=== PATIENT | female | born 1945 | race Caucasian/White ===

== ENCOUNTER → 2021-06-28 13:07 | Outpatient (BNVA) | payer MEDICARE, SELFPAY | PROVIDERS: Visit Provider Psychiatry & Neurology Neurology | DX: R25.1 Tremor, unspecified (principal); M54.9 Dorsalgia, unspecified; R25.2 Cramp and spasm | CPT/HCPCS: 99212 ==

== ENCOUNTER → 2021-12-24 14:02 | Outpatient (BNVA) | payer MEDICARE, SELFPAY | PROVIDERS: PCP Internal Medicine; Visit Provider Psychiatry & Neurology Neurology | DX: R25.1 Tremor, unspecified (principal); M54.9 Dorsalgia, unspecified; R25.2 Cramp and spasm | CPT/HCPCS: 99212 ==

== ENCOUNTER 2025-04-18 15:08 | Outpatient (AMB) | payer MEDICARE, MEDICAID, SELFPAY ==
--- OUTSIDE RECORDS SUMMARY | 2006-11-18 11:42 | XMS_ITS | Encounter Summary ---
Author Organization [facility] Address [address] [place] [address] Care Team Providers Care Hospital Education Coordinator Name Role Phone Unavailable Primary Care Provider Unavailabl e Encounter Details Date Type Department Care Team (Late st Contact Info) Description 11/18/2006 12:42 PM EDT Hospital Encounter TH HISTORIC ENCOUNTERS EASTERN CONVERSION ONLY Anne Newman MD [address] [phone] Social History Tobacco Use Types Packs/Day Years Used Date Smoking Tobacco: Former Cigarettes 0.5 Q uit: 11/17/2022 Smokeless Tobacco: Never Alcohol Use Standard Drinks/Week Comments Not Currently 0 (1 standard drink = 0.6 oz pur e alcohol) Housing Instability Answer Date Recorde d Are you worried that in the next 2 months you may not have stable housing? No 03/23/2025 Food Access & Nutrition Answer Date Rec orded Do you have access to a vari ety of food including fruits and vegetables? No 03/23/2025 Health Literacy Answer Date Recorded How often do you need to hav e someone help you when you read instructions, pamphlets, or other written material from your doctor or pharmacy? Never 03/23/2025 Caregiver: How often do you need to have someone help you when you read instructions, pamphlets, or other written material from your doctor or pharmacy? Not on file 03/23/2025 Financial Risk Answer Date Recorded How hard is it for you to pa y for the very basics like food, housing, medical care, and air conditioning / heating? Not very hard 03/23/2025 Transportation Answer Date Recorded Has the lack of transportati on kept you from meetings, work, or from getting things needed for daily living? No Has the lack of transportati on kept you from medical appointments or from getting medications? No 03/23/2025 Social Isolation Answer Date Recorded How often do you feel lonely or isolated from th ose around you? Never 03/23/2025 Food Risk Answer Date Recorded Within the past 12 months we worried whether our food would run out before we got money to buy more. Never true 03/23/2025 Within the past 12 months th e food we bought just didn't last and we didn't have money to get more. Never true 03/23/2025 Dependent Care Answer Date Recorded Do you need help finding or paying for care for your loved ones. For example, director child development center or elderly care for an older adult? No 03/23/2025 Education Answer Date Recorded Do you think completing more education or training, like finishing a GED, going to college, or learning a trade, would be helpful for you? Patient declined 05/10/2024 Employment and Income Answer Date Recor ded During the last four weeks, have you been actively looking for work? No 03/23/2025 Living Situation Answer Date Recorded What is your living situation? Unrecognized valu e 03/23/2025 Interpersonal Safety Answer Date Record ed Physical Abuse Unrecognized value 04/09/2025 Verbal Abuse Unrecognized value 04/09/2025 Comments No Sex and Gender Information Value Date Recorded Sex Assigned at Female 08/24/2024 11:07 AM EDT Legal Sex Female 10:56 AM EST Gender Identity Female 08/24/2024 11:07 AM EDT Sexual Orientation Straight 08/24/2024 11 :07 AM EDT documented as of this encounter Functional Status * Calculated C-SSRS Risk Score (Lifetime/Recent) Answer Date of Assessment Author No Risk Indicated 04/09/2025 2:40 PM Irasema Rey RN * [place] Suicide Severity Rating Scale (Screener/Recent Self-Report) Question Answer Date of Assessment Author 1. Wish to be (Past 1 Month) No 025 2:40 PM Irasema Rey RN 2. Non-Specific Active Suici rosa maria Thoughts (Past 1 Month) No 04/09/2025 2:40 PM Ashleigh Rey RN 6. Suicidal Behavior (Lifetime) No 2:40 PM Irasema Rey RN documented as of this encounter Plan of Treatment Upcoming Encounters Date Type Department Care Team (Late st Contact Info) Description 04/19/2025 1:45 PM EST Office Visit Internal Medicine - [address] [phone] Spring Oconnell MD [address] [place] [phone] 05/02/2025 1:30 PM EST Office Visit Orthopedic Surgery [place] [id number] [phone] Niraj Palacios DPM [address] [phone] 09/21/2025 10:15 AM EDT Office Visit Pulmonology [address] [phone] Shelia Mandujano MD [address] [place] [phone] 09/23/2025 11:15 AM EDT Office Visit Internal Medicine [address] [phone] Spring Oconnell MD [address] [place] [phone] documented as of this encounter Visit Diagnoses Not on filedocumented in this encounter Additional Health Concerns Infection Onset Date Last Indicated Resolved Time Respiratory Rule-Out 05/10/2024 05/10/202406/2 025 3:13 AM EST COVID-19 Rule-Out 05/10/2024 05/10/2024 05/10/2024 3:13 AM EST Respiratory Rule-Out 04/09/2025 04/09/2025 025 5:03 PM EST COVID-19 Rule-Out 04/09/2025 04/09/2025 04/09/2025 5:03 PM EST Enterovirus 04/09/2025 04/09/2025 Rhinovirus 04/09/2025 04/09/2025 documented as of this encounter
--- OUTSIDE RECORDS SUMMARY | 2013-03-18 09:16 | XMS_ITS | Encounter Summary ---
Author Organization [facility] Address [address] [place] [address] Care Team Providers Care Curing Press Maintainer Name Role Phone Unavailable Primary Care Provider Unavailabl e Encounter Details Date Type Department Care Team (Late st Contact Info) Description 03/18/2013 9:16 AM EST Hospital Encounter [facility] Pre-Admission Testing [address] [place] [phone] Zander Moreno MD [address] [place] [address] [place] [phone] Social History Tobacco Use Types Packs/Day Years [...] care for your loved ones. For example, child and family counselor or elderly care for an older adult? [...] 04/09/2025 2:40 PM Irasema Rey RN * [place] Suicide Severity Rating Scale (Screener/Recent Self-Report) Question [...] PM EST Office Visit Internal Medicine - [place] [address] [phone] Spring Oconnell MD [address] [place] [phone] 05/02/2025 1:30 PM EST Office Visit Orthopedic Surgery - [place] [address] [phone] Niraj Palacios DPDago [address] [phone] 09/21/2025 10:15 AM EDT Office Visit Pulmonology - [address] [phone] Shelia Mandujano MD [address] [place] [phone] 09/23/2025 11:15 AM EDT Office Visit Internal Medicine [facility] [address] [phone] Spring Oconnell MD [address] [place] [phone] documented as of this encounter Visit Diagnoses Not on filedocumented in this encounter Additional Health Concerns Infection Onset Date Last Indicated Resolved Time Respiratory Rule-Out 05/10/2024 05/10/2024 025 3:13 AM EST COVID-19 Rule-Out 05/10/2024 05/10/2024 05/10/2024 3:13 AM EST Respiratory Rule-Out 04/09/2025 04/09/2025 025 5:03 PM EST COVID-19 Rule-Out 04/09/2025 04/09/2025 04/09/2025 5:03 PM EST Enterovirus 04/09/2025 04/09/2025 Rhinovirus 04/09/2025 04/09/2025 documented as of this encounter
--- NOTE | 2025-04-18 15:11 | A.PHYSOV ---
Vital Signs 04/18/25 15:12 Height 4 ft 11 in Weight 125 lb BMI 25.2 Intake Visit Reasons: Follow up after injection 02/11/25 Intake Note: Patient is a 79 year old female in office today for a follow up after Left Sacroiliac Joint Injection 02/11/25. 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 She has a history of severe lower back pain and uses gabapentin at nighttime. A lumbar sacral spine MRI from September 2019 revealed moderate to severe spinal stenosis and neuroforaminal stenosis at the L3-L4 level. Her pain history includes discomfort in the left buttock and left anterolateral thigh, for which she previously had good results with L4-L5 interlaminar and right L4 transforaminal injections. A left L3 transforaminal injection on November 24, 2024, did not provide relief. A repeat MRI on December 25, 2024, showed only mild stenosis at the L3-L4 level. Subsequently, a left sacroiliac joint injection was performed on February 11, 2025. Following the most recent injection, the patient reports she can walk erect and is comfortable while standing. However, approximately three weeks after the procedure, she experienced a single day of severe, continuous, and debilitating muscle cramping in her arms and legs. She continues to experience muscle cramps, though they are not as severe. For the past few weeks, she has also been dragging her left leg, which concerns her. In her recent medical history, the patient was hospitalized for rhinovirus after experiencing symptoms for four days, including chest pressure and difficulty breathing. She has no history of heart issues and was treated with steroids during her hospitalization. Pain Description - Location: The patient reports severe lower back pain, very painful discomfort in the groin area, and left hip pain. - Quality: She describes the pain as a discomfort and also experiences muscle cramps. - Exacerbating Factors: The groin and left hip pain are worse when lying in bed, particularly on her left side. - Relieving Factors: A recent left sacroiliac joint injection has provided significant relief, allowing her to stand and walk upright comfortably. - Associated Symptoms: She reports dragging her left leg for several weeks. Results - Lumbar sacral spine MRI (September 23, 2019): Moderate to severe spinal stenosis at L3-L4 and neuroforaminal stenosis at the same level. - Lumbar sacral spine MRI (December 25, 2024): Mild stenosis at the L3-L4 level. - Recent hospitalization workup: Positive for Rhinovirus. [facility] Medical History (Updated 04/18/25 @ 16:44 by Ashok Christensen DO) Footdrop Sacroiliac inflammation Sacroiliac dysfunction Spinal stenosis, lumbar region with neurogenic claudication Lumbar radiculitis Cramps, extremity Foot cramps Back pain Neck pain HTN (hypertension) SVT (supraventricular tachycardia) Spinal stenosis Arthritis Tremors of nervous system Surgical History History of suburethral sling procedure History of partial colectomy Hx of breast surgery Hx of eye surgery Hx of pneumonectomy Hx of heart surgery Hx of appendectomy Family History Paternal Grandmother Tremors of nervous system Social History Alcohol intake: current Alcohol intake frequency: holidays/special occasions only Patient Tobacco Use Status: Current someday Tobacco user Substance Use Type: Marijuana Current occupational status: retired Review of Systems Narrative Review of Systems - General: Denies falls. - Cardiovascular: Denies heart issues; reports recent history of chest pressure. - Respiratory: Reports recent history of dyspnea. - Musculoskeletal: Reports severe low back pain, groin pain, and left hip pain, particularly when lying down. - Musculoskeletal: Reports ongoing muscle cramps, with one severe episode in the past. - Neurological: Reports dragging her left leg and weakness in the foot. - Neurological: Reports feeling off kilter sometimes but is very cautious about her balance. Physical Exam Exam Exam: Physical Exam - General: Patient is observed walking erect. - Neurological: Gait is notable for left foot dragging. Neurological examination reveals left footdrop 3/5. Patellar and Achilles reflexes were symmetric. Patient demonstrated no upper motor neuron signs. - Musculoskeletal: Left foot is noted to be weaker than the right, consistent with foot drop. - Musculoskeletal: Patient is able to perform ankle dorsiflexion and plantarflexion actively without resistance. Vital Signs: BMI result Body Mass Index 25.2 Assessment & Plan Assessment & Plan (1) Lumbar radiculitis: Code(s): M54.16 - Radiculopathy, lumbar region Category: Medical (2) Spinal stenosis, lumbar region with neurogenic claudication: Code(s): M48.062 - Spinal stenosis, lumbar region with neurogenic claudication Category: Medical (3) Sacroiliac dysfunction: Code(s): M53.3 - Sacrococcygeal disorders, not elsewhere classified Category: Medical (4) Sacroiliac inflammation: Code(s): M46.1 - Sacroiliitis, not elsewhere classified Category: Medical (5) Footdrop: Code(s): M21.379 - Foot drop, unspecified foot Category: Medical Qualifiers: Laterality: left Qualified Code(s): M21.372 - Foot drop, left foot Plan Pain Management - Analgesia: The patient uses gabapentin at nighttime. - Analgesia: A left sacroiliac joint injection performed on February 11, 2025, has provided significant pain relief, allowing her to stand and walk upright. - Activities of Daily Living: She can now walk erect. - Activities of Daily Living: She continues to experience discomfort when lying in bed and is dragging her left leg. - Activities of Daily Living: She is very cautious regarding her balance to prevent falls and uses grab bars in the shower. - Adverse Effects: The patient experienced a single day of severe, debilitating, continuous muscle cramps in her arms and legs three weeks after her last injection, which may have been a reaction to the steroid. - Adverse Effects: She continues to experience muscle cramps, although they are less severe. Plan Patient was informed and verbally consented to the use of an ambient scribe for clinic note documentation during this visit. 1. Lumbar Spinal Stenosis And Chronic Low Back Pain The patient's current improvement in ambulation, allowing her to stand upright, is attributed to the recent left sacroiliac joint injection. Her new-onset left foot drop is likely related to a pinched nerve in her low back due to spinal stenosis. The severe muscle cramping episode about three weeks after the injection may have been a reaction to the steroid. Given the current good pain control and the previous adverse reaction, no immediate repeat injection is planned. She was advised to continue monitoring her symptoms and to call if the pain returns to a level where she cannot stand upright. A repeat injection can be considered after May 14, 2025. 2. Left Foot Drop The patient's left foot drop, characterized by foot dragging, is believed to be a consequence of lumbar spinal stenosis causing nerve impingement. While she is at risk for falls, she is actively mitigating this by being very cautious. She has a scheduled consultation with a neurologist, Dr. Cortes, in August for further evaluation. A referral for an ankle-foot orthosis (brace) is a potential future intervention if her condition does not improve or her fall risk increases. 3. Left Sacroiliac Joint Pain The patient has shown a significant positive response to the left sacroiliac joint injection from February 11, 2025, which has resolved her pain with ambulation and allows her to stand upright. The plan is to monitor the duration of relief from this injection. A repeat injection can be performed after May 14 if symptoms recur. Discussion Notes I discussed with the patient that her ability to walk upright without significant pain is likely due to the left sacroiliac joint injection she received over two months ago. We talked about her new symptom of left foot dragging, and I explained that this is likely related to a pinched nerve from her known spinal stenosis, not the sacroiliac joint. I acknowledged her report of a severe episode of muscle cramping that occurred about three weeks after the injection and explained it might have been a reaction to the steroid. Due to this potential side effect, I expressed hesitation about repeating the injection too soon. We agreed to a plan of monitoring her symptoms. I noted that her upcoming neurology appointment with Dr. Cortes in August is appropriate for her foot drop symptoms. I mentioned that if neurologic evaluation does not provide a solution, we could consider a referral for an ankle-foot orthosis (brace) to improve safety. I informed her she could call to schedule another injection after May 14 if her pain returns to the point where she can no longer stand upright. Patient Instructions - Continue to be very careful with your balance to avoid falling, especially since you are dragging your left foot. - Keep your neurology appointment with Dr. Bliss in August to have your foot weakness evaluated. - If your pain returns and you can no longer stand up straight, call our office to discuss another injection. - You are able to get another injection after May 14, if it becomes necessary. - If you and your neurologist decide a brace for your ankle and foot would be helpful, we can provide a referral for orthotics. Coding Level of Care Code Est Pt Level 4 (72944) Add On Problem Visit Only Diagnoses Lumbar radiculitis M54.16 Spinal stenosis, lumbar region with neurogenic claudication M48.062 Sacroiliac dysfunction M53.3 Sacroiliac inflammation M46.1 Left foot drop M21.372 Laterality: left
[2025-04-18 15:12] VITALS: BMI 25.2
--- OUTSIDE RECORDS SUMMARY | 2025-04-18 21:41 | XMS_ITS | Patient Health Record ---
[facility] Address [address] [place] [address] Care Team Providers Care Management Developer Name Role Phone Cullen Kingsley MD Primary Care Provider Carolinastephanie Tang [place] Unavailable [phone] Allergies Allergen (clinical drug ingredient) Drug/Non Drug Allergy documented on EMR Reaction Allergy Type Onset Date Status sulfamethoxazole / trimethoprim Bactrim Unknown Drug Allergy Active Sulfamethoxazole Unknown Drug Allergy Active sulfa Unknown Drug Allergy Active Reason For Referral No Information Medications Medication SIG (Take, Route, Frequency, Duration) Notes Start Date End Date Status Meclizine HCl 12.5 MG 2 tablets as neede d Orally Once a day 05/06/2017 Not-Taking dilTIAZem HCl ER Not -Taking oxyBUTYnin Active Curcumin 95 Active Vitamin D3 Active Cartia XT 180 MG 1 capsule Orally Onc e a day 05/06/2017 Active Atorvastatin Calcium 40 MG 1 tablet Orally Once a day Active B-12 100-5000 MCG Sublingual A ctive Multi Vitamin Daily - 1 tablet Orally On ce a day Active Anti-Diarrheal 2 MG 1 tablet as needed Orally Four times a day 05/06/2017 Unknown Celecoxib 100 MG 1 capsule with food Orally Unknown CeleBREX 100 MG 1 capsule with food Orally Once a day 05/06/2017 Not-Taking Social History Tobacco Use: Social History Observation Description Date Details (start date - stop date) Current Smoker NA - NA Tobacco Use/Smoking Question Answer Notes Are you a: current smoker When did you start smoking? 1959 How often do you smoke cigarettes? every day How many cigarettes a day do you smoke? -20 How soon after you wake up d o you smoke your first cigarette? 6-30 minutes Are you interested in quitting? Ready to quit Additional Findings: Tobacco User Heavy cigarett e smoker (20-39 cigs/day) Alcohol Screen Question Answer Notes Did you have a drink containing alcohol in the p ast year? Yes Points 0 Interpretation Negative Tobacco use other than smoking: Question Answer Notes Are you an other tobacco user? No Problems Problem Type SNOMED Code ICD Code Onset Dates Problem Status W/U Status Risk Notes Problem Smoker (41969279) Smoker (F17.200) Active confirmed Plan Of Treatment Pending Test Test Name Order Date 32111-HRSLYSE NAIL, 6 OR MORE 05/13/2017 Nail Panel 05/13/2017 Insurance Providers Payer Name Payer Address Payer Phone Subscriber Number Group Number Insured Name Patient Relationship to Insured Coverage Start Date Coverage End Date [employer] Preferred [address] [place] [address] [phone] [id number] Krystyna Hightower Self - patient is the insured Medical (General) History Medical History History ICD Code Arthritis Back,Hip,and Knee pain CAD (Cholesterol) High blood pressure Macular degeneration Osteoporosis Measles Mumps Chicken pox Surgical History Surgery Date(Month/Year) lung surgery 03/27/2013 colon 06/07/2011 sling, at bladder neck 11/20/2006 appendectomy 1966 Appendix 1959 3 eye surgeries 1950 Breast Surgery 2002 Hospitalization History Reason Date(Month/Year) MM observation 12/22/18
--- OUTSIDE RECORDS SUMMARY | 2025-04-18 21:42 | XMS_ITS | Clinical Summary ---
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 Active Oyster Shell Calcium + D3 500-10 MG-MCG tablet Take 2 tablets by mouth Once per day. Active dilTIAZem CD (Cardizem CD) 180 MG 24 hr capsule Take 180 mg by mouth Once per day. 2 Active gabapentin (Neurontin) 300 MG capsule 300 mg 2 times daily. 3 Active spironolactone (Aldactone) 50 MG tablet Take 50 mg by mouth Once per day. 4 Active Gemtesa 75 MG tablet Take 1 tablet by mouth Once per day. Active Anoro Ellipta 62.5-25 MCG/ACT aerosol powder INHALE 1 PUFF ONCE DAILY 3 Active acetaminophen (Tylenol 8 Hour) 650 MG ER tablet Take 650 mg by mouth 2 times daily. 4 Active ProAir RespiClick 108 (90 Base) MCG/ACT aerosol powder INHALE TWO puffs BY MOUTH EVERY FOUR HOURS NEEDED FOR WHEEZING OR SHORTNESS OF BREATH 4 Active Social History Tobacco Use Types Packs/Day Years Used Date Smoking Tobacco: Every Day Cigarettes Passive Smoke Exposure: Never Smokeless Tobacco: Never Tobacco Cessation:Ready to Q uit: Not Asked; Counseling Given: Not Answered Comments Unknown Sex and Gender Information Value Date Recorded Sex Assigned at Female 03/04/2022 10:35 AM EDT Legal Sex Female 10:35 AM EDT Gender Identity Female 03/04/2022 10:35 AM EDT Sexual Orientation Straight 03/04/2022 10 :35 AM EDT Last Filed Vital Signs Vital Sign Reading Time Taken Comments Blood Pressure 106/60 09/11/2023 11:08 AM EDT Pulse 65 09/11/2023 11:08 AM EDT Temperature - - Respiratory Rate - - Oxygen Saturation - - Inhaled Oxygen Concentration - - Weight - - Height - - Body Mass Index - - Plan of Treatment Health Maintenance Due Date Last Done Comments Depression Screening 1944 Lipid Panel 1944 SDOH Screening 1944 Alcohol/Substance Use Screening 1956 Dental Oral Exam 03/14/2024 09/11/2023, 09/15/2018 Dental Prophylaxis 03/14/2024 09/11/2023, 09/22/2018 Dental X-Ray: Bitewings 09/11/2024 09/11/2023, 09/11 Tobacco Screening 10/15/2024 10/16/2023 COVID-19 Vaccine ( season) 2025 01/20/2023, 02/12/2022, 09/16/2021, Additional history exists Influenza Vaccine (#1) 2025 , 01/31/2022, 02/07/2021, Additional history exists Dental X-Ray: Full Mouth 09/11/2026 09/11/2023, 09/02 DTaP/Tdap/Td Vaccines (3 - Td or Tdap) 01/21/2029 01/21/2019, 01/06/2019 Zoster Vaccines Completed 07/20/2019, 05/22/2019 Pneumococcal Vaccine: 50+ Years Completed 06/22/2021, 08/22/2017 RSV Patients and Patients Aged 60 years or older Completed 01/15/2023 HIB Vaccines Aged Out No longer eligi ble based on patient's age to complete this topic HPV Vaccines Aged Out No longer eligi ble based on patient's age to complete this topic Hepatitis A Vaccines Aged Out No long er eligible based on patient's age to complete this topic Hepatitis B Vaccines Aged Out No long er eligible based on patient's age to complete this topic IPV Vaccines Aged Out No longer eligi ble based on patient's age to complete this topic Meningococcal B Vaccine Aged Out No l onger eligible based on patient's age to complete this topic Meningococcal Vaccine Aged Out No janes christina eligible based on patient's age to complete this topic RSV under 20 months Aged Out No longe r eligible based on patient's age to complete this topic Rotavirus Vaccines Aged Out No longer eligible based on patient's age to complete this topic Procedures Procedure Name Priority Date/Time Associated Diagnosis Comments PROPHYLAXIS - ADULT Routine 09/11/2023 1 1:00 AM EDT INTRAORAL - COMPLETE SERIES OF RADIOGRAPHIC IMAGES Routine 09/11/2023 11:00 AM EDT PERIODIC ORAL EVALUATION - ESTABLISHED PATIENT Routine 09/11/2023 11:00 AM EDT from Last 3 Months or Most Recently Relevant to Health Maintenance Insurance DENTAL - HSN FULL (MEDICAID)
--- OUTSIDE RECORDS SUMMARY | 2025-04-18 21:42 | XMS_ITS | Encounter Summary ---
Author Organization [facility] Address [address] [place] [address] Care Team Providers Care Organic Chemistry Teacher Name Role Phone Spring Oconnell MD Primary Care Provider [phone] Reason for Visit * Reason Onset Date Comments Medication Problem 03/15/2025 Encounter Details Date Type Department Care Team ([facility] st Contact Info) Description 03/15/2025 Telephone Internal Medicine - [address] [place] [address] Spring Oconnell MD [address] [place] [phone] Social History Tobacco Use Types Packs/Day Years [...] do you feel lonely or isolated from ose around you? Never 03/23/2025 Food Risk [...] care for your loved ones. For example, childcare center administrator or elderly care for an older adult? [...] as of this encounter Functional Status * Are you deaf or do you have serious difficulty hearing? Answer Date of Assessment Author No 05/10/2024 7:51 AM EST Doles, As dawna Enrique RN * Are you blind or do you have serious difficulty seeing, even when wearing glasses? Answer Date of Assessment Author No 05/10/2024 7:51 AM EST Doles, As dawna Enrique RN * Do you have serious difficulty walking or climbing stairs? Answer Date of Assessment Author No 05/10/2024 7:51 AM EST Doles, As dawna Enrique RN * Do you have serious difficulty dressing or bathing? Answer Date of Assessment Author No 05/10/2024 7:51 AM EST Doles, As dawna Enrique RN * Because of a physical, mental, or emotional condition, do you have serious difficulty doing errandsalone such as visiting the doctor? Answer Date of Assessment Author No 05/10/2024 7:51 AM EST Dolmaddison, As dawna Enrique RN * Calculated C-SSRS Risk Score (Lifetime/Recent) Answer Date of Assessment Author No Risk Indicated 04/09/2025 2:40 PM Irasema Rey RN * [place] Suicide Severity Rating Scale (Screener/Recent Self-Report) Question Answer Date of Assessment Author 1. Wish to be (Past 1 Month) No 025 2:40 PM Irasema Rey RN 2. Non-Specific Active Suici rosa maria Thoughts (Past 1 Month) No 04/09/2025 2:40 PM Ashleigh Rey RN 6. Suicidal Behavior (Lifetime) No 2:40 PM Irasema Rey RN documented as of this encounter Mental Status * Because of a physical, mental, or emotional condition, do you have serious difficulty concentrating, remembering, or making decisions? (5 years old or older) Answer Entry Date Author No 05/10/2024 7:51 AM SHAR Cantu, Krissy Enrique RN documented in this encounter Ordered Prescriptions Prescription Sig Dispense Quantity Refills Last Filled Start Date End Date amoxicillin-clavul anate (AUGMENTIN) 875-125 mg per tablet Take 1 tablet by mouth 2 (two) times a day for 7 days. 14 tablet 03/29/2025 04/12/2025 documented in this encounter Progress Notes * Alice Kyle MD - 03/29/2025 6:28 AM EST sent * Esme Anne MA - 03/28/2025 11:37 AM EST Patient called and stated she was seen with Dr Oconnell and she stated antibiotic was suppose to be send to her local pharmacy is this something you could send. * Carmina Back - 03/25/2025 9:03 AM EST Patient was just in office - UTI No med was sent to pharmacy - did discuss this at [facility] and amoxicillin was to be sent to pharmacy. Call patient when sent to pharmacy documented in this encounter Plan of Treatment Upcoming Encounters Date Type Department Care Team (Late st Contact Info) Description 04/19/2025 1:45 PM EST Office Visit Internal Medicine - [facility] [address] [phone] Spring Oconnell MD [address] [place] [address] 05/02/2025 1:30 PM EST Office Visit Orthopedic Surgery - [facility] [address] [phone] Niraj Palacios DPM [address] [phone] 09/21/2025 10:15 AM EDT Office Visit Pulmonology - [facility] [address] [place] [phone] Shelia Mandujano MD [address] [place] [address] 09/23/2025 11:15 AM EDT Office Visit Internal Medicine - [facility] [address] [place] [phone] Spring Oconnell MD [address] [place] [phone] documented as of this encounter Visit Diagnoses Not on filedocumented in this encounter Additional Health Concerns Infection Onset Date Last Indicated Resolved Time Respiratory Rule-Out 04/09/2025 04/09/2025 025 5:03 PM EST COVID-19 Rule-Out 04/09/2025 04/09/2025 04/09/2025 5:03 PM EST Enterovirus 04/09/2025 04/09/2025 Rhinovirus 04/09/2025 04/09/2025 Assessment Noted Time PHQ-9 Depression Total Score: 12 025 1:13 PM EDT documented as of this encounter Care Teams Organic Chemistry Teacher Relationship Specialty Start Date End Date Spring Oconnell MD [address] [facility] [address] [place] [phone] PCP - General Internal Medicine 03/11/25 documented as of this encounter
--- OUTSIDE RECORDS SUMMARY | 2025-04-18 21:42 | XMS_ITS | Clinical Summary ---
Author Organization [facility] Address [address] [place] [address] Phone Care Team Providers Care Special Investigation Unit Investigator Name Role Phone Spring Oconnell MD Primary Care Provider [phone] Allergies Active Allergy Reactions Criticality Noted Date Comments Codeine 09/11/2005 Prednisone 05/10/2024 Pt states on last admission she got herpes from steroids Sulfamethoxazole 03/28/2020 Sulfamethoxazole-Trimethop rim Diarrhea,Nausea And Vomiting 04/03/2021 Medications acetaminophen (TYLENOL 8 HOUR) 650 mg 8 hr tablet Take 1 tablet (650 mg total) by mouth if needed. 06/13/19 24 Active ipratropium-albu teroL (Combivent Respimat) 20-100 mcg/actuation inhaler Inhale 1 puff by mouth 4 (four) times a day. 12/12/19 23 Active multivitamin tablet Take 1 tablet by mouth 1 (one) time each day. Active fluticasone propionate (FLONASE) 50 mcg/actuation nasal spray Administer 2 sprays into each nostril 1 (one) time each day. Shake gently. Before first use, prime pump. After use, clean tip and replace cap. 16 g 5 05/03/20 24 025 Active calcium carbonate-cholec alciferol 500 mg-10 mcg (400 unit) per tabletIndication s:Age-related osteoporosis without current pathological fracture Take 1 tablet by mouth 2 (two) times a day. 180 tablet 3 08/24/19 25 Active atorvastatin (LIPITOR) 40 mg tablet Take 1 tablet (40 mg total) by mouth 1 (one) time each day. 90 each 2 09/15/19 25 Active umeclidinium-adwoa anteroL (Anoro Ellipta) 62.5-25 mcg/actuation inhalerIndicatio ns:Chronic obstructive pulmonary disease, unspecified COPD type (CMS/HCC V24, CMS/HCC V28) Inhale 1 puff by mouth 1 (one) time each day. 3 each 3 11/04/19 25 026 Active vibegron (Gemtesa) 75 mg tablet tabletIndication s:OAB (overactive bladder) Take 1 tablet (75 mg total) by mouth 1 (one) time each day. 90 tablet 3 11/26/19 25 Active colestipoL (COLESTID) 1 gram tabletIndication s:Functional diarrhea Take 4 tablets (4 g total) by mouth 2 (two) times a day. 720 each 3 02/05/20 25 026 Active albuterol HFA (PROAIR HFA ; PROVENTIL HFA ; VENTOLIN HFA) 90 mcg/actuation inhaler Inhale 2 puffs by mouth every 6 (six) hours if needed for wheezing or shortness of breath. 1 each 11 03/22/20 25 026 Active gabapentin (NEURONTIN) 300 mg capsule Take 1 capsule (300 mg total) by mouth 3 (three) times a day. 90 each 5 03/23/20 25 026 Active cholecalciferol (Vitamin D3) 50 mcg (2,000 unit) tablet Take 1 tablet (2,000 Units total) by mouth 1 (one) time each day. 90 tablet 1 03/23/20 25 026 Active dilTIAZem CD (CARDIZEM CD) 120 mg 24 hr capsule Take 1 capsule (120 mg total) by mouth 1 (one) time each day. 30 each 04/12/20 25 026 Active spironolactone (ALDACTONE) 25 mg tablet Take 1 tablet (25 mg total) by mouth 1 (one) time each day. 30 each 04/12/20 25 026 Active apixaban (ELIQUIS) 5 mg tablet Take 2 tablets (10 mg total) by mouth 2 (two) times a day for 6 days, THEN 1 tablet (5 mg total) 2 (two) times a day. 84 each 04/12/20 25 026 Active dexAMETHasone (DECADRON) 1 mg tablet Take 1 tablet (1 mg total) by mouth 2 (two) times a day. 4 each 04/12/20 25 Active albuterol sulfate (ProAir RespiClick) 90 mcg/actuation aerosol powdr breath activated 05/20/19 24 Discontinu ed(Duplica te order) cyanocobalamin (VITAMIN B-12) 2,000 mcg tablet Take 1 tablet (2,000 mcg total) by mouth 1 (one) time each day. Discontinu ed(Prescri malachi Discontinu ed) diclofenac (VOLTAREN) 1 % topical gel Apply 2 g topically if needed. 03/15/20 22 Discontinu ed(Stop Taking at Discharge) gabapentin (NEURONTIN) 300 mg capsule Take 1 capsule (300 mg total) by mouth 2 (two) times a day. 01/22/20 23 Discontinu ed(Reorder ) spironolactone (ALDACTONE) 50 mg tablet Take 1 tablet (50 mg total) by mouth 1 (one) time each day. 90 each 08/17/19 25 Discontinu ed(Stop Taking at Discharge) albuterol HFA (PROAIR HFA ; PROVENTIL HFA ; VENTOLIN HFA) 90 mcg/actuation inhalerIndicatio ns:Chronic obstructive pulmonary disease, unspecified COPD type (CMS/HCC V24, CMS/HCC V28) Inhale 2 puffs by mouth every 6 (six) hours if needed for wheezing or shortness of breath. 1 each 11 11/04/19 25 Discontinu ed(Duplica te order) acyclovir (ZOVIRAX) 400 mg tablet 11/03/19 25 Discontinu ed(Prescri malachi Discontinu ed) fluocinonide (LIDEX) 0.05 % topical solution 11/03/19 25 Discontinu ed(Entered in Error) apixaban (Eliquis) 5 mg tablet Take 1 tablet (5 mg total) by mouth 2 (two) times a day. 180 tablet 1 12/09/19 25 025 Discontinu ed(Prescri malachi Discontinu ed) dilTIAZem CD (CARDIZEM CD) 180 mg 24 hr capsule Take 1 capsule (180 mg total) by mouth 1 (one) time each day. 90 capsule 1 12/15/19 25 Discontinu ed(Stop Taking at Discharge) cholecalciferol (VITAMIN D-3) 50 mcg (2,000 unit) capsuleIndicatio ns:Age-related osteoporosis without current pathological fracture Take 1 capsule (2,000 Units total) by mouth 1 (one) time each day. 90 each 3 03/01/20 25 025 Discontinu ed(Formula ry change) umeclidinium-adwoa anteroL (Anoro Ellipta) 62.5-25 mcg/actuation inhaler Inhale 1 puff by mouth 1 (one) time each day. 3 each 3 03/22/20 25 025 Discontinu ed(Duplica te order) valACYclovir (VALTREX) 1 gram tablet Take 1 tablet (1,000 mg total) by mouth 2 (two) times a day for 7 days. 14 each 03/23/20 25 025 amoxicillin-clav ulanate (AUGMENTIN) 875-125 mg per tablet Take 1 tablet by mouth every 12 (twelve) hours for 7 days. 14 each 03/25/20 25 025 amoxicillin-clav ulanate (AUGMENTIN) 875-125 mg per tablet Take 1 tablet by mouth 2 (two) times a day for 7 days. 14 tablet 03/29/20 25 Discontinu ed(Stop Taking at Discharge) Active Problems Problem Noted Date Diagnosed Date Acute pulmonary embolism 04/12/2025 Rhinovirus infection 04/12/2025 Tobacco abuse disorder 11/03/2024 Assessment & Plan (03/01/2025 1:51 PM EDT): Coronary artery disease invo lving alatna coronary artery of alatna heart without angina pectoris 10/18/2024 Assessment & Plan (10/18/2024 12:00 PM EDT): Patient had a CTA of the chest 05/2024 which showed coronary atherosclerosis. Patient denies any exertional anginal symptoms. Patient's LDL cholesterol is 34 under excellent control on her present dose of atorvastatin. Blood pressure is also well-controlled. Patient is on Eliquis for anticoagulation. I have reviewed with the patient the importance of a heart healthy lifestyle which includes eating a low- fat low-salt diet, getting regular exercise, maintaining a healthy weight, not smoking, and following up with routine medical care. Other pulmonary embolism without acute cor pulmo nale 10/18/2024 Assessment & Plan (10/18/2024 11:25 AM EDT): Patient was hospitalized 05/2024 and diagnosed with pulmonary embolism. She is now on chronic anticoagulation with Eliquis. Functional diarrhea 06/18/2024 Assessment & Plan (02/04/2025 3:44 PM EDT): Asymptomatic on colestipol Cont 4g twice a day Orders: colestipoL (COLESTID) 1 gram tablet; Take 4 tablets (4 g total) by mouth 2 (two) times a day. Assessment & Plan (11/04/2024 6:22 PM EDT): Much better since beginning Colestid 2 tablets twice a day Trying to optimize stool consistency further by increasing to 3 tablets twice a day Orders: colestipoL (COLESTID) 1 gram tablet; Take 3 tablets (3 g total) by mouth 2 (two) times a day. Fecal incontinence 06/18/2024 Assessment & Plan (02/04/2025 3:44 PM EDT): Improved Assessment & Plan (11/04/2024 6:22 PM EDT): Suspect related to pelvic floor dysfunction and poor sphincter tone in combination with soft/nonformed stool Patient declined pelvic floor therapy at this time Will trial increase Colestid to 3 tablets twice a day to hopefully firm stool up and allow better evacuation Epigastric pain 06/18/2024 Venous (peripheral) insufficiency 12/01/2023 Overview (10/18/2024): Assessment & Plan (10/18/2024 11:13 AM EDT): The patient underwent a lower extremity venous duplex which showed significant reflux in the left and right lower extremity. We discussed conservative treatment including compression stockings, elevation and low-salt diet. She denies any significant swelling at this time. Hypomagnesemia 09/11/2023 Stage 3a chronic kidney disease 09/11/2023 Lung nodules 01/22/2023 Overview (12/19/2023): Last Assessment & Plan: Chest CT with mild emphysematous changes on May 2023 Continuing the lung cancer screening program 2024 Acute exacerbation of chroni c obstructive pulmonary disease (COPD) 12/11/2022 Overview (12/19/2023): Last Assessment & Plan: Patient with stable stage II COPD. Status post COPD exacerbation 15 days ago Plan: 1. Continue with Anoro/Ellipta 1 puff once a day 2. Continue with Combivent or albuterol as needed 3 Recommended to completely quit smoking 4. Lung cancer screening CT in 2024 5. 6-minute walk test today did not show patient needs oxygen. Assessment & Plan (03/01/2025 1:51 PM EDT): Left ovarian cyst 2021 Pelvic pain 2021 Overview (12/19/2023): Last Assessment & Plan: Discussed potential causes of pelvic pain with the patient including infections, ovarian cysts, endometriosis, painful bladder syndrome, irritable bowel, adhesion formation from prior surgery and MSK etiologies. UA positive for small LE and questionably positive for trace blood. Urine culture sent, will treat as indicated. I discussed with the patient that, while I do not have any prior imaging to refer to, the uterine fibroids are not likely new and most likely have been present for many years. As she is menopausal I reassured the patient that the fibroids are likely decreasing in size. We discussed common symptoms of fibroids, however I do not believe these are causing her pain. While she was unable to pinpoint when her pain started, it does appear that this pain is relatively new. Based on physical exam findings I am concerned for UTI or possibly painful bladder syndrome. The patient does have a urologist - Dr. Newman. She plans to follow-up with Dr. Newman to discuss this possibility. Pelvic ultrasound ordered to further assess fibroids and for follow-up of the simple appearing left ovarian cyst. She was instructed to complete the ultrasound in approximately 3 months. Relief measures for pain reviewed. All questions answered. Osteopenia 09/28/2021 DDD (degenerative disc disease), cervical 2021 Overview (12/19/2023): Last Assessment & Plan: Ms. Hightower has cervical degenerative disc disease as seen on her MRI from July 18, 2021 at [facility]. Despite that, she does not have much in the way of neck pain. Her biggest complaint has been shoulder pain with radiation to to the biceps on the right greater than left side. Recent cortisone injection in her shoulders has given her significant relief. She says that she does not want to stay on steroids for the rest of her life and was looking for alternative treatments. We discussed acupuncture, physical therapy and yoga. I gave her a paper on natural anti-inflammatory agents for pain relief in athletes. She is welcome to follow- up with us in the future on an as-needed basis. 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 HLD (hyperlipidemia) 10/06/2020 Overview (10/18/2024): Assessment & Plan (03/01/2025 1:51 PM EDT): Assessment & Plan (10/18/2024 11:13 AM EDT): Patient has a history of hyperlipidemia. Her last fasting lipid panel showed acceptable cholesterol control. She will continue her current dose of atorvastatin as prescribed. I have reviewed with the patient the importance of a heart healthy lifestyle which includes eating a low-fat low-salt diet, getting regular exercise, maintaining a healthy weight, not smoking, and following up with routine medical care. Hypertensive disorder 10/06/2020 Assessment & Plan (03/01/2025 1:51 PM EDT): Orders: Comprehensive metabolic panel; Future Assessment & Plan (10/18/2024 11:13 AM EDT): Patient's blood pressure is well-controlled today with a reading 106/58. She will continue her current hypertensive medication regimen as prescribed. Hypokalemia 10/06/2020 Urinary incontinence 10/06/2020 Laceration of right hand 02/09/2019 Lump or mass in breast 05/14/2018 OAB (overactive bladder) Assessment & Plan (03/01/2025 1:51 PM EDT): Chronic diarrhea Low back pain Assessment & Plan (03/01/2025 1:51 PM EDT): Orders: Ambulatory referral to Physical Therapy and Athletic Training; Future Resolved Problems Problem Noted Date Diagnosed Date Resolved Date Acute hypoxic respiratory failure 05/10/2024 04/12/2025 HTN (hypertension) 5 Overview (08/23/2024): DX:HTN (hypertension) Encounters Date Type Department Care Team Description 04/13/2025 Telephone Internal Medicine [address] [place] [phone] Comfort Zhou RN 04/09/2025 2:24 PM EST - 04/12/2025 2:06 PM EST Hospital Encounter [facility] [address] [place] [phone] Walt Velásquez MD Flores, Carlos M, MD Japaridze, Anna, MD Acute hypoxic respiratory failure (CMS/HCC V24, CMS/HCC V28) (Primary Dx); Acute bronchitis, unspecified organism; Acute exacerbation of chronic obstructive pulmonary disease (COPD) (CMS/HCC V24, CMS/HCC V28); Acute pulmonary embolism, unspecified pulmonary embolism type, unspecified whether acute cor pulmonale present (CMS/HCC V24, CMS/HCC V28) Discharge Disposition: Home or Self Care 04/04/2025 Telephone Internal Medicine - [address] [place] [phone] Spring Oconnell MD 03/25/2025 Telephone Internal Medicine [address] [place] [phone] Spring Oconnell MD 03/23/2025 11:50 AM EST Lab Draw Station - [address] [place] [address] [address] [place] [phone] Urinary incontinence, unspecified type (Primary Dx); Thyroid nodule 03/23/2025 10:45 AM EST Office Visit Internal Medicine [address] [place] [phone] Spring Oconnell MD Tremor of both hands (Primary Dx); Encounter for medication review; Herpes simplex infection; Urinary incontinence, unspecified type; Chronic obstructive pulmonary disease, unspecified COPD type ([facility] V24, [facility] V28); Coronary artery disease involving alatna coronary artery of alatna heart without angina pectoris; Stage 3a chronic kidney disease ([facility] V24, [facility] V28); Other pulmonary embolism without acute cor pulmonale, unspecified chronicity ([facility] V24, [facility] V28); Age-related osteoporosis without current pathological fracture; Thyroid nodule; Urinary tract infection symptoms 03/23/2025 Results Follow-Up Internal Medicine [facility] [address] [facility] [address] [place] [address] Spring Oconnell MD 03/22/2025 4:15 PM EST Office Visit Pulmonology [facility] [address] [facility] [address] [place] [address] Shelia Mandujano MD Thyroid nodule (Primary Dx); Chronic obstructive pulmonary disease, unspecified COPD type ([facility] V24, [facility] V28); Bronchiectasis without acute exacerbation ([facility] V24, [facility] V28); Ex-smoker 03/17/2025 Telephone Pulmonology [facility] [address] [phone] Shelia Mandujano MD 03/15/2025 Telephone Internal Medicine [facility] [address] [facility] [address] [place] [phone] Spring Oconnell MD 03/14/2025 Telephone Internal Medicine [facility] [address] [facility] [address] [place] [phone] Spring Oconnell MD 03/01/2025 2:15 PM EDT Office Visit Orthopedic Surgery [facility] [address] [facility] [address] [place] [phone] Niraj Palacios DPM Acquired hammer toe of right foot (Primary Dx); Ingrowing nail; Dermatophytosis of nail; Pain in toe of right foot; Pain in toe of left foot; Metatarsalgia of both feet; Bilateral femoral artery stenosis ([facility] V24); Corns and callosities; Difficulty walking 03/01/2025 1:00 PM EDT Office Visit Internal Medicine [address] [place] [address] Lexis Navarro PA Routine general medical examination at a health care facility (Primary Dx); Primary hypertension; Mixed hyperlipidemia; Chronic obstructive pulmonary disease, unspecified COPD type (CMS/HCC V24, CMS/HCC V28); Tobacco abuse disorder; Age-related osteoporosis without current pathological fracture; OAB (overactive bladder); Multinodular goiter; Chronic bilateral low back pain, unspecified whether sciatica present; Tremor of both hands; Blister of buttock, initial encounter; Anxiety and depression 03/01/2025 Results Follow-Up Internal Medicine [facility] [address] [phone] Lexis Navarro PA 02/04/2025 1:20 PM EDT Office Visit Gastroenterology - [address] [place] [address] Sanjeev Cameron PA Functional diarrhea (Primary Dx); Incomplete defecation; Rectal lump 01/28/2025 Telephone Internal Medicine [facility] [address] [phone] Lexis Navarro PA 01/27/2025 12:34 PM EDT - 01/27/2025 11:59 PM EDT Hospital Encounter [facility] [address] [place] [address] Thyroid nodule Discharge Disposition: Home or Self Care 01/24/2025 Telephone Gastroenterology - [address] [phone] Sanjeev Cameron PA 01/19/2025 Telephone Internal Medicine [facility] [address] [phone] Viridiana Kaufman [place] 01/19/2025 Telephone Internal Medicine [facility] [address] [phone] Lexis Navarro PA 01/17/2025 1:30 PM EDT Office Visit Orthopedic Surgery - [place] [address] [facility] [address] [place] [address] Niraj Palacios, JALEN Acquired hammer toe of right foot (Primary Dx); Ingrowing nail; Dermatophytosis of nail; Pain in toe of right foot; Pain in toe of left foot; Difficulty walking; Corns and callosities; Bilateral femoral artery stenosis (CMS/HCC V24); Metatarsalgia of both feet from Last 3 Months Immunizations Immunization Administration Dates Next Due COVID-19 (Pfizer/Comirnaty) 12yo and older 01/20/2023 Influenza Quadravalent, 0.5m l (Fluad) 65yo and older 02/14/2020 Influenza Quadravalent, 0.5m l (Fluzone High-dose) 65yo and older 01/20/2023,02/07/2021 Influenza Quadravalent, MDCK , 0.5ml, preservative free (Flucelvax) 6mo and older 01/31/2022 Influenza trivalent, 0.5mL ( Fluad) 65yo and older 01/22/2024 Influenza trivalent, 0.5mL ( Fluzone High-dose) 65yo and older 02/14/2020 Influenza trivalent, with pr eservative (Fluzone; Afluria) 6mo and older 03/09/2019,04/22/2018,02/07/2017,05/24,02/03/2009 Influenza, Unspecified 01/20/2023,02/23/2021 Pfizer (ages 12 & older) Biv alent, COVID-19 02/12/2022 Pfizer (ages 12 & older) SYL S-CoV-2 COVID-19, mRNA, LNP-S, kassi-sucrose, preservative free 09/16/2021 Pfizer SARS-CoV-2 COVID-19, mRNA, LNP-S, preservative free 01/20/2023,02/12/2022,09/16/2021,09/04 Pneumococcal conjugate 13 va lent (Prevnar 13, PCV13) 2mo and older 08/22/2017 Pneumococcal polysaccharide 23 valent (Pneumovax 23) 2yo and older 06/22/2021 RSV, bivalent, protein subun it RSVpreF, 0.5mL, Preservative Free (ABRYSVO) 50yo and older or 32 through 36 wks of 01/15/2023 Tdap Tetanus diptheria acell ular pertussis (Boostrix; Adacel) 7yo and older 01/21/2019,01/06/2019 Zoster recombinant (Shingrix ) 19yo and older 07/20/2019,05/22/2019 Surgical History Surgery Date Site/Laterality Comments BREAST LUMPECTOMY PROCEDURE: HISTORICAL BREAST LUMPECTOMY; COMMENT: x 2 OTHER SURGICAL HISTORY 11/02/2006 PROCEDURE: TN SLING OPERATION STRESS INCONTINENCE; COMMENT: sling done by Dr. Newman TUBAL LIGATION PROCEDURE: HISTORICAL TUBAL LIGATION APPENDECTOMY PROCEDURE: TN APPENDECTOMY OTHER SURGICAL HISTORY 06/07/2011 PROCEDURE: TN COLECTOMY PARTIAL W/ANASTOMOSIS; COMMENT: Dr. Whitley OTHER SURGICAL HISTORY 2004 PROCEDURE: HISTORY OTHER; COMMENT: catheter ablation for AVNRT Dr. Barr COLONOSCOPY 11/10/2012 PROCEDURE: HISTORICAL COLONOSCOPY; COMMENT: diverticulosis in cecum, hemorrhoids repeat 10 years OTHER SURGICAL HISTORY Left PROCEDURE: TN RMVL LUNG OTHER THAN PNEUMONECT 1 SEGMENTECTOMY; COMMENT: FR[facility] benign STEREOTACTIC CORE BIOPSY COLONOSCOPY 03/05/2023 - 04/03/2023 tics left colon, patent end-to-end colocolonic anastomosis, healthy appearing mucosa (PRN) Dr. Swift Medical History Medical History Date Comments Anxiety state, unspecified DX:An xiety state, unspecified Hernia, hiatal 04/03/2021 DX:Hernia, hiata l Insomnia 04/03/2021 DX:Insomnia Tobacco use 04/03/2021 DX:Tobacco use Diverticulosis 04/03/2021 DX:Diverticulosi s; COMMENT: CN 11/10/12 Hemorrhoids 04/03/2021 DX:Hemorrhoids; COMMENT: CN 11/10/12 History of atrioventricular esha ablation 04/03/2021 DX:History of atrioventricul ar esha ablation; COMMENT: 2004 Dr. Barr History of COVID-19 04/03/2021 DX:History o f COVID-19; COMMENT: April 2020 HLD (hyperlipidemia) 01/22/2021 DX:HLD (hyp erlipidemia) HTN (hypertension) 01/22/2021 DX:HTN (hyper tension) Incontinence 04/03/2021 DX:Incontinence Lump or mass in breast 05/14/2018 DX:Lump o r mass in breast Osteoporosis 04/03/2021 DX:Osteoporosis; COMMENT: Bone Density 04/14/17 DDD (degenerative disc disea se), cervical 06/25/2021 DX:DDD (degenerative disc di sease), cervical COPD (chronic obstructive pu lmonary disease) ([facility] V24, [facility] V28) OAB (overactive bladder) Chronic diarrhea Low back pain Tobacco abuse disorder Family History Medical History Relation Name Comments Breast cancer Daughter Other: muscle disorder Father Stroke Mother Lung cancer Neg Hx Relation Name Status Comments Brother Alive Daughter Father Maternal Grandfather Maternal Grandmother Mother Paternal Grandfather Paternal Grandmother Social History Tobacco Use Types Packs/Day Years Used Date Smoking Tobacco: Former Cigarettes 0.5 Q uit: 11/17/2022 Smokeless Tobacco: Never Tobacco Cessation:Counseling Given: Not Answered Alcohol Use Standard Drinks/Week Comments Not Currently [...] for your loved ones. For example, child day care teacher or elderly care for an older adult? [...] Orientation Straight 08/24/2024 11 :07 AM EDT Obstetrics History Para Term AB IAB SAB Ectopic Multiple Livin g Live Births 2 Last Filed Vital Signs Vital Sign Reading Time Taken Comments Blood Pressure 113/70 04/12/2025 7:46 AM EST Pulse 84 04/12/2025 7:46 AM EST Temperature 36.9 C (98.5 F) 04/12/2025 7:46 AM EST Respiratory Rate 14 04/12/2025 7:46 AM EST Oxygen Saturation 96% 04/12/2025 11:49 AM EST Inhaled Oxygen Concentration - - Weight 59.9 kg (132 lb) 04/10/2025 12:44 PM EST Height 149.9 cm (4' 11 ) 04/10/2025 12:44 PM EST Body Mass Index 26.66 04/10/2025 12:44 PM EST Plan of Treatment Upcoming Encounters Date Type Department Care Team (Late st Contact Info) Description 04/19/2025 1:45 PM EST Office Visit Internal Medicine - [place] [address] [phone] Spring Oconnell MD [address] [place] [address] 05/02/2025 1:30 PM EST Office Visit Orthopedic Surgery - [place] [address] [address] [phone] Nriaj Palacios, DPM [address] [phone] 09/21/2025 10:15 AM EDT Office Visit Pulmonology - [address] [phone] Shelia Mandujano MD [address] [place] [phone] 09/23/2025 11:15 AM EDT Office Visit Internal Medicine [facility] [address] [phone] Spring Oconnell MD 230 [place] [phone] Health Maintenance Due Date Last Done Comments COVID-19 Vaccine (10 - Pfizer risk 2024- season) 2025 01/18/2025, 01/22/2024, 01/20/2023, Additional history exists Medicare Annual Wellness Visit 03/01/2026 03/01/2025 Social Influencers of Health Screening 03/23/2026 03/23/2025 Hypertension/CHF/CAD Annual BMP Blood Test 04/11/2026 04/11/2025, 04/10/2025, 04/09/2025, Additional history exists Falls Risk Assessment 04/12/2026 04/12/2025 DTaP,Tdap,and Td Vaccines (3 - Td or Tdap) 01/21/2029 01/21/2019, 01/06/2019 Cholesterol Screening (Lipid Panel) 08/26/2029 08/26/2024, 01/13/2024, 01/13/2024, Additional history exists Osteoporosis Screening (Bone Density Screening) 10/12/2034 10/12/2024, 09/27/2021 Zoster Vaccines Completed 07/20/2019, 05/22/2019 Pneumococcal Vaccine: 50+ Years Completed 06/22/2021, 08/22/2017 Lung Cancer Screening (Low Dose CT) Discontinued 05/21/2022 RSV Immunization Adult Patients Completed 01/15/2023 Influenza Vaccine Completed 01/18/2025, , 01/20/2023, Additional history exists Depression Screening Completed 03/01/2025 HIB Vaccines Aged Out No longer eligi [...] on patient's age to complete this topic MMR Vaccines Aged Out No longer eligi ble based on patient's age to complete this topic Meningococcal ACWY Vaccine Aged Out N o longer eligible based on patient's age to complete this topic Meningococcal B Vaccine Aged Out No l onger eligible based on patient's age to complete this topic RSV Immunization Patients Under 20 months Aged Out No longer eligible based on patient's age to complete this topic Varicella Vaccines Aged Out No longer eligible based on patient's age to complete this topic Procedures Procedure Name Priority Date/Time Associated Diagnosis Comments ECG ANNOTATED 04/13/2025 SST - GOLD Routine 04/12/2025 5:42 AM EST EXTRA TUBES Routine 04/12/2025 5:42 AM EST COMPLETE BLOOD COUNT Timed 04/12/2025 5:42 AM EST FERRER URINE CULTURE TUBE STAT 04/11/2025 3:06 PM EST URINALYSIS WITH REFLEX MICROSCOPIC AND CULTURE STAT 04/11/2025 3:06 PM EST URINALYSIS WITH REFLEX MICROSCOPIC AND CULTURE STAT 04/11/2025 3:06 PM EST LAVENDER - EDTA Routine 04/11/2025 6:50 AM EST SST - GOLD Routine 04/11/2025 6:50 AM EST EXTRA TUBES Routine 04/11/2025 6:50 AM EST HEPARIN AND LOW MOLECULAR WEIGHT ANTI XA LEVEL Timed 04/11/2025 6:50 AM EST COMPLETE BLOOD COUNT Routine 04/11/2025 3:32 AM EST HEPARIN AND LOW MOLECULAR WEIGHT ANTI XA LEVEL Timed 04/11/2025 3:32 AM EST MAGNESIUM Routine 04/11/2025 3:31 AM EST BASIC METABOLIC PANEL Routine 04/11/2025 3:31 AM EST HEPARIN AND LOW MOLECULAR WEIGHT ANTI XA LEVEL Timed 04/10/2025 7:25 PM EST HEPARIN AND LOW MOLECULAR WEIGHT ANTI XA LEVEL Timed 04/10/2025 1:24 PM EST TRANSTHORACIC ECHOCARDIOGRAM (TTE) COMPLETE W/ CONTRAST Routine 04/10/2025 12:05 PM EST Acute pulmonary embolism, unspecified pulmonary embolism type, unspecified whether acute cor pulmonale present (CMS/HCC V24, CMS/HCC V28) HEPARIN AND LOW MOLECULAR WEIGHT ANTI XA LEVEL Timed 04/10/2025 5:05 AM EST CBC WITH AUTO DIFFERENTIAL Routine 04/10/2025 5:05 AM EST CBC AND DIFFERENTIAL Routine 04/10/2025 5:05 AM EST MAGNESIUM Routine 04/10/2025 5:05 AM EST BASIC METABOLIC PANEL Routine 04/10/2025 5:05 AM EST HEPARIN AND LOW MOLECULAR WEIGHT ANTI XA LEVEL Timed 04/10/2025 1:11 AM EST VAS US DUPLEX LOWER EXT VENOUS BILAT Routine 04/09/2025 9:00 PM EST Acute pulmonary embolism, unspecified pulmonary embolism type, unspecified whether acute cor pulmonale present (CMS/HCC V24, CMS/HCC V28) HEPARIN AND LOW MOLECULAR WEIGHT ANTI XA LEVEL STAT 04/09/2025 7:49 PM EST TROPONIN I HIGH SENSITIVITY STAT 04/09/2025 7:[address] ANGIO CHEST WO AND/OR W CONTRAST STAT 04/09/2025 6:03 PM EST Acute hypoxic respiratory failure (CMS/HCC V24, CMS/HCC V28) VENOUS BLOOD GAS STAT 04/09/2025 4:01 PM EST RESPIRATORY VIRUS PANEL MOLECULAR STUDY STAT 04/09/2025 3:57 PM EST XR CHEST 1 VIEW STAT 04/09/2025 3:35 PM EST ECG 12-LEAD STAT 04/09/2025 3:24 PM EST CBC WITH AUTO DIFFERENTIAL STAT 04/09/2025 3:05 PM EST B-TYPE NATRIURETIC PEPTIDE STAT 04/09/2025 3:05 PM EST BASIC METABOLIC PANEL STAT 04/09/2025 3:05 PM EST ETHANOL STAT 04/09/2025 3:05 PM EST HEPATIC FUNCTION PANEL STAT 3:05 PM EST LIPASE STAT 04/09/2025 3:05 PM EST MAGNESIUM STAT 04/09/2025 3:05 PM EST TROPONIN I HIGH SENSITIVITY STAT 04/09/2025 3:05 PM EST D-DIMER STAT 04/09/2025 3:05 PM EST ACTIVATED PARTIAL THROMBOPLASTIN TIME STAT 04/09/2025 3:05 PM EST PROTHROMBIN TIME WITH INR STAT 04/09/2025 3:05 PM EST CBC AND DIFFERENTIAL STAT 04/09/2025 3:05 PM EST FERRER URINE CULTURE TUBE Routine 03/23/2025 11:56 AM EST Thyroid nodule Urinary incontinence, unspecified type URINALYSIS WITH REFLEX MICROSCOPIC AND CULTURE Routine 03/23/2025 11:56 AM EST Thyroid nodule Urinary incontinence, unspecified type URINALYSIS WITH REFLEX MICROSCOPIC AND CULTURE Routine 03/23/2025 11:56 AM EST Thyroid nodule Urinary incontinence, unspecified type CULTURE URINE Routine 03/23/2025 11:56 AM EST Thyroid nodule Urinary incontinence, unspecified type THYROID STIMULATING HORMONE WITH REFLEX TO FREE T4 AND FREE T3 Routine 03/23/2025 11:49 AM EST Thyroid nodule COMPREHENSIVE METABOLIC PANEL Routine 03/01/2025 2:54 PM EDT Primary hypertension VITAMIN B12 Routine 03/01/2025 2:54 PM EDT Tremor of both hands THYROID STIMULATING HORMONE Routine 03/01/2025 2:54 PM EDT Multinodular goiter MAGNESIUM Routine 03/01/2025 2:54 PM EDT Tremor of both hands FOLATE Routine 03/01/2025 2:54 PM EDT Tremor of both hands US HEAD NECK SOFT TISSUE Routine 01/27/2025 1:13 PM EDT Thyroid nodule BD BONE DENSITY DXA AXIAL SKELETON Routine 10/12/2024 1:18 PM EDT Age-related osteoporosis without current pathological fracture LIPID PANEL WITH REFLEX TO DIRECT LDL Routine 08/26/2024 8:44 AM EDT Mixed hyperlipidemia CT LUNG SCREENING LOW DOSE Routine 05/21/2022 11:02 AM EST Personal history of nicotine dependence from Last 3 Months or Most Recently Relevant to Health Maintenance Results * ECG-Annotated (04/13/2025) us Provider Onbase MD ECG ORDERABLES Final Result * SST tube (04/12/2025 5:42 AM EST) Only the most recent of2 resultswithin the time period is included. Extra Tube Hold for add-ons. 04/12/2025 8:01 AM EST [facility] Comment:Auto resulted. Blood Venous blood specimen / Unknown Venipuncture / Unknown 04/12/2025 5:42 AM EST 04/12/2025 6:27 AM EST Diana Beckett MD LAB BLOOD ORDERABLES Final Res ult [facility] [address] [place] [address], * (ABNORMAL) CBC - Every 3 Days (04/12/2025 5:42 AM EST) Only the most recent of2 resultswithin the time period is included. WBC 10.5 4.8 - 10.8 K/[facility] LAB HEMETOLOGY METHOD 04/12/2025 6:57 AM [facility] RBC 3.50(L) 3.80 - 4.80 M/mcL LAB HEMETOLOGY METHOD 04/12/2025 6:57 AM [facility] Hemoglobin 12.1 11.5 - 16.0 g/dL LAB HEMETOLOGY METHOD 04/12/2025 6:57 AM [facility] Hematocrit 34.8(L) 35.0 - 47.0 % LAB HEMETOLOGY METHOD 04/12/2025 6:57 AM [facility] MCV 98.6(H) 79.0 - 98.0 FL LAB HEMETOLOGY METHOD 04/12/2025 6:57 AM [facility] MCH 34.3(H) 27.0 - 32.0 pcg LAB HEMETOLOGY METHOD 04/12/2025 6:57 AM [facility] MCHC 34.8 32.0 - 37.0 g/dL LAB HEMETOLOGY METHOD 04/12/2025 6:57 AM [facility] RDW 13.2 11.0 - 15.0 % LAB HEMETOLOGY METHOD 04/12/2025 6:57 AM [facility] Platelets 164 130 - 400 K/[facility] LAB HEMETOLOGY METHOD 04/12/2025 6:57 AM [facility] MPV 9.8 7.0 - 11.0 FL LAB HEMETOLOGY METHOD 04/12/2025 6:57 AM [facility] NRBC 0.0 <1.0 % LAB HEMETOLOGY METHOD 04/12/2025 6:57 AM [facility] NRBC Absolute 0.00 <0.10 K/mcL LAB HEMETOLOGY METHOD 04/12/2025 6:57 AM [facility] Blood Venous blood specimen / Unknown Venipuncture / Unknown 04/12/2025 5:42 AM EST 04/12/2025 6:25 AM EST us Diana Beckett MD LAB BLOOD ORDERABLES Final Res ult [facility] [address] [place] [address], [place] [phone] * Urinalysis with reflex microscopic and culture (04/11/2025 3:06 PM EST) Only the most recent of2 resultswithin the time period is included. Specific [place] Urine 1.010 1.003 - 1.030 LAB URINALYSIS - AUTOMATED METHOD 04/11/2025 4:22 PM [facility] pH, Urine 6.5 5.0 - 8.0 pH LAB URINALYSIS - AUTOMATED METHOD 04/11/2025 4:22 PM [facility] Leukocytes, Urine Negative Negative LAB URINALYSIS - AUTOMATED METHOD 04/11/2025 4:22 PM [facility] Nitrite, Urine Negative Negative LAB URINALYSIS - AUTOMATED METHOD 04/11/2025 4:22 PM [facility] Protein, Urine Negative <=Trace mg/dL LAB URINALYSIS - AUTOMATED METHOD 04/11/2025 4:22 PM [facility] Glucose, Urine Negative Negative mg/dL LAB URINALYSIS - AUTOMATED METHOD 04/11/2025 4:22 PM [facility] Ketones, Urine Negative Negative mg/dL LAB URINALYSIS - AUTOMATED METHOD 04/11/2025 4:22 PM [facility] Urobilinogen, Urine 0.2 0.2 - 1.0 mg/dL LAB URINALYSIS - AUTOMATED METHOD 04/11/2025 4:22 PM [facility] Bilirubin, Urine Negative Negative LAB URINALYSIS - AUTOMATED METHOD 04/11/2025 4:22 PM [facility] Blood, Urine Negative Negative LAB URINALYSIS - AUTOMATED METHOD 04/11/2025 4:22 PM EST [facility] Urine Urine specimen obtained by clean catch procedure / Unknown Non-blood Collection / Unknown 04/11/2025 3:06 PM EST 04/11/2025 4:11 PM EST Walt Velásquez MD LAB URINE ORDERABLES Final Result Performing Organization Address [facility] de Phone Number [facility] [address] [place] [address], [place] [phone] * Ferrer urine culture tube (04/11/2025 3:06 PM EST) Only the most recent of2 resultswithin the time period is included. Extra Tube Hold for add-ons. 04/11/2025 6:01 PM EST [facility] Comment:Auto resulted. Urine Urine specimen obtained by clean catch procedure / Unknown Non-blood Collection / Unknown 04/11/2025 3:06 PM EST 04/11/2025 4:11 PM EST us Walt Velásquez MD LAB URINE ORDERABLES Final Result Performing Organization Address [facility] de Phone Number [facility] [address] [place] [address], [place] [phone] * Lavender tube (04/11/2025 6:50 AM EST) Extra Tube Hold for add-ons. 04/11/2025 9:01 AM EST [facility] Comment:Auto resulted. Blood Venous blood specimen / Unknown Venipuncture / Unknown 04/11/2025 6:50 AM EST 04/11/2025 7:16 AM EST us Diana Beckett MD LAB BLOOD ORDERABLES Final Res ult Performing Organization Address City/[facility] Co de Phone Number [facility] [address] [place] [address], [place] [phone] * Anti-Xa - Every 6 Hours (04/11/2025 6:50 AM EST) Only the most recent of7 resultswithin the time period is included. Heparin Anti-Xa 0.54 0.30 - 0.70 I Unit/mL LAB COAGULATION METHOD 04/11/2025 7:30 AM EST [facility] Blood Venous blood specimen / Unknown Venipuncture / Unknown 04/11/2025 6:50 AM EST 04/11/2025 7:10 AM EST Narrative [facility] - 04/11/2025 7:30 AM EST Therapeutic range listed is for Unfractionated Heparin. LMW Heparin therapeutic range: 0.50-1.20 IU/mL Diana Beckett MD LAB BLOOD ORDERABLES Final Res ult Performing Organization Address City/[facility]/ZIP Co de Phone Number [facility] [address] [place] [address], [place] [phone] * (ABNORMAL) Magnesium (04/11/2025 3:31 AM EST) Only the most recent of4 resultswithin the time period is included. Pathologist [facility] Magnesium 1.8(L) 1.9 - 2.6 mg/dL 04/11/2025 4:13 AM EST [facility] Blood Venous blood specimen / Unknown Venipuncture / Unknown 04/11/2025 3:31 AM EST 04/11/2025 3:37 AM EST Diana Beckett MD LAB BLOOD ORDERABLES Final Res ult [facility] [address] [place] [address], [place] [phone] * (ABNORMAL) Basic metabolic panel (04/11/2025 3:31 AM EST) Only the most recent of3 resultswithin the time period is included. Sodium 138 133 - 145 mmol/L 04/11/2025 4:13 AM [facility] Potassium 4.8 3.5 - 5.5 mmol/L 04/11/2025 4:13 AM [facility] Chloride 106 96 - 110 mmol/L 04/11/2025 4:13 AM [facility] CO2 24 21 - 32 mmol/L 04/11/2025 4:13 AM [facility] Anion Gap 8 3 - 11 04/11/2025 4:13 AM [facility] Glucose 151(H) 70 - 100 mg/dL 04/11/2025 4:13 AM [facility] BUN 30(H) 5 - 25 mg/dL 04/11/2025 4:13 AM [facility] Creatinine 1.27(H) 0.50 - 1.10 mg/dL 04/11/2025 4:13 AM [facility] eGFR 43(L) >=60 mL/min/1. 73m2 04/11/2025 4:13 AM [facility] Comment:Calculation based on the Chronic Kidney Disease Epidemiology Collaboration (CKD-EPI) equation refit without adjustment for race. BUN/Creatinine Ratio 23.6 04/11/2025 4:13 AM [facility] Calcium 8.0(L) 8.5 - 10.5 mg/dL 04/11/2025 4:13 AM [facility] Blood Venous blood specimen / Unknown Venipuncture / Unknown 04/11/2025 3:31 AM EST 04/11/2025 3:37 AM EST us Diana Beckett MD LAB BLOOD ORDERABLES Final Res ult [facility] [address] [place] [address], [place] [phone] * TRANSTHORACIC ECHOCARDIOGRAM (TTE) COMPLETE W/ CONTRAST (04/10/2025 12:05 PM EST) Left Atrium Minor [place] 5.0 cm CV PACS Left Atrium Major [place] 5.2 cm CV PACS LA Area Sys (A2C) 18 cm2 CV PACS LA Area Sys (A4C) 19 cm2 CV PACS LA Volume (BP) 54 mL CV PACS RA Area 17.7 cm2 CV PACS RA 2D Volume 46 mL CV PACS AV Mean Gradient 4 mmHg CV PACS Ao VTI 32.6 cm CV PACS AV Peak Gianluca 1.4 m/s CV PACS AV Peak Gradient 8 mmHg CV PACS AV Area Continuity Equation 2.6 cm2 CV PACS AV Area Peak Velocity 2.9 cm2 CV PACS Aortic Sinus Valsalva 2.9 cm CV PACS Ascending Aorta 3.6 cm CV PACS IVC Proximal 1.6 cm CV PACS IVSD 0.7 0.6 - 0.9 cm CV PACS LVIDD 4.4 3.8 - 5.2 cm CV PACS LVIDS 3.1 2.2 - 3.5 cm CV PACS LVOT Diameter 2.0 cm CV PACS LVOT Mean Gianluca 0.8 m/s CV PACS LVOT Mean Grad 3 mmHg CV PACS LVOT Peak VTI 26.8 cm CV PACS LVOT Peak Gianluca 1.3 m/s CV PACS LVOT Peak Gradient 7 mmHg CV PACS LVPWD 0.8 0.6 - 0.9 cm CV PACS MV E' Tissue Velocity Lateral 10 cm/s CV PACS MV E' Tissue Velocity Septal 8 cm/s CV PACS LVOT Area 3.1 cm2 CV PACS LVOT Stroke Volume 84 mL CV PACS E Wave Deceleration Time 165 119 - 242 ms CV PACS MV Peak A Gianluca 0.58 m/s CV PACS MV Peak E Gianluca 0.93 m/s CV PACS PV Acceleration Time 113 ms CV PACS PV Acceleration Time 113 ms CV PACS PV Peak Velocity 0.8 m/s CV PACS PV Peak Gradient 3 mmHg CV PACS RV Diastolic Basal Dimension 2.7 2.5 - 4.1 cm CV PACS RV S' 11 cm/s CV PACS TAPSE 28 mm CV PACS TR Peak Velocity 2.15 m/s CV PACS TR Peak Gradient 18 mmHg CV PACS E/E' Ratio Septal 12 CV PACS E/E' Ratio Averaged 10 CV PACS LVOT Stroke Index 54 mL/m2 CV PACS Relative Wall Thickness ratio 0.36 CV PACS LVOT:AV VTI Index 0.82 CV PACS FS 30 % CV PACS LV Mass 2D 101 g CV PACS Ascending Aorta Index 2.32 cm/m2 CV PACS LVOT flow 251 mL/s CV PACS RA 2D Volume Index 30 mL/m2 CV PACS YUDI Index (VTI) 1.67 cm2/m2 CV PACS YUDI Index (Pk Gianluca) 1.87 cm2/m2 CV PACS LVIDD Index 2.84 cm/m2 CV PACS LVIDS Index 2.00 cm/m2 CV PACS AV Velocity Ratio 0.93 CV PACS E/A Ratio 1.6 CV PACS E/E' Ratio Lateral 9 CV PACS LA Volume Index (BP) 35 mL/m2 CV PACS LV Mass Index 2D 65 g/m2 CV PACS BSA 1.58 m2 CV PACS Right Ventricular Peak Systolic Pressure 21 mmHg CV PACS Est. RA Pressure 3 mmHg CV PACS Anatomical Region Laterality Modality Ultrasound Narrative 04/11/2025 8:33 AM EST Left ventricle cavity size is normal. Wall thickness is normal. Systolic function is normal with an ejection fraction of 55-60%. There are no regional LV wall motion abnormalities. Right ventricle cavity is normal. Right ventricular systolic function is normal. No hemodynamically significant valvular disease. The right ventricular systolic pressure is normal at 21 mmHg. There are no significant changes compared to the previous study from 09/18/2023. Left Ventricle Left ventricle cavity size is normal. Wall thickness is normal. Systolic function is normal with an ejection fraction of 55-60%. There are no regional LV wall motion abnormalities. Indeterminate diastolic function. Right Ventricle Right ventricle cavity appears normal. Systolic function is normal. Left Atrium Left atrium volume index is mildly increased. Right Atrium Right atrium cavity is mildly dilated. IVC/SVC RA pressure is estimated to be 3 mmHg (IVC diameter <21 mm and decreases >50% during inspiration). Mitral Valve The leaflets are mildly thickened. There is mild annular calcification. There is trace regurgitation. There is no evidence of mitral valve stenosis. Tricuspid Valve The leaflets exhibit normal excursion. There is mild regurgitation. There is no evidence of tricuspid valve stenosis. The right ventricular systolic pressure is normal. The RVSP is estimated at 21 mmHg. Aortic Valve The aortic valve is trileaflet. The leaflets are mildly thickened. There is no regurgitation or stenosis. Pulmonic Valve Visualized portions of the pulmonic valve appear normal. There is trace pulmonic valve regurgitation. There is no evidence of pulmonic valve stenosis. Ascending Aorta The aorta appears normal in size. Pericardium Pericardium appears normal. Study Details Overall the study quality was technically difficult. Definity contrast was given to enhance imaging. Study was difficult due to: poor endocardial visualization. us Juvenal Alva MD CV ECHO PROCEDURES Final Resu lt * (ABNORMAL) CBC auto differential (04/10/2025 5:05 AM EST) Only the most recent of2 resultswithin the time period is included. WBC 7.4 4.8 - 10.8 K/mcL LAB HEMETOLOGY METHOD 04/10/2025 6:16 AM [facility] RBC 3.50(L) 3.80 - 4.80 M/mcL LAB HEMETOLOGY METHOD 04/10/2025 6:16 AM [facility] Hemoglobin 12.0 11.5 - 16.0 g/dL LAB HEMETOLOGY METHOD 04/10/2025 6:16 AM [facility] Hematocrit 34.8(L) 35.0 - 47.0 % LAB HEMETOLOGY METHOD 04/10/2025 6:16 AM [facility] MCV 99.4(H) 79.0 - 98.0 FL LAB HEMETOLOGY METHOD 04/10/2025 6:16 AM [facility] MCH 34.3(H) 27.0 - 32.0 pcg LAB HEMETOLOGY METHOD 04/10/2025 6:16 AM [facility] MCHC 34.5 32.0 - 37.0 g/dL LAB HEMETOLOGY METHOD 04/10/2025 6:16 AM [facility] RDW 12.7 11.0 - 15.0 % LAB HEMETOLOGY METHOD 04/10/2025 6:16 AM [facility] Platelets 134 130 - 400 K/mcL LAB HEMETOLOGY METHOD 04/10/2025 6:16 AM [facility] MPV 9.2 7.0 - 11.0 FL LAB HEMETOLOGY METHOD 04/10/2025 6:16 AM [facility] NRBC 0.0 <1.0 % LAB HEMETOLOGY METHOD 04/10/2025 6:16 AM [facility] NRBC Absolute 0.00 <0.10 K/mcL LAB HEMETOLOGY METHOD 04/10/2025 6:16 AM [facility] Neutrophils Relative 92.2 % LAB HEMETOLOGY METHOD 04/10/2025 6:16 AM [facility] Lymphocytes Relative 6.6 % LAB HEMETOLOGY METHOD 04/10/2025 6:16 AM [facility] Monocytes Relative 0.8 % LAB HEMETOLOGY METHOD 04/10/2025 6:16 AM [facility] Eosinophils Relative 0.0 % LAB HEMETOLOGY METHOD 04/10/2025 6:16 AM [facility] Basophils Relative 0.0 % LAB HEMETOLOGY METHOD 04/10/2025 6:16 AM [facility] Immature Granulocytes Relative 0.4 % LAB HEMETOLOGY METHOD 04/10/2025 6:16 AM [facility] Neutrophils Absolute 6.81 1.50 - 7.00 K/mcL LAB HEMETOLOGY METHOD 04/10/2025 6:16 AM [facility] Lymphocytes Absolute 0.49(L) 1.00 - 5.00 K/mcL LAB HEMETOLOGY METHOD 04/10/2025 6:16 AM EST [facility] Monocytes Absolute 0.06(L) 0.20 - 1.00 K/mcL LAB HEMETOLOGY METHOD 04/10/2025 6:16 AM EST [facility] Eosinophils Absolute 0.00 0.00 - 0.50 K/mcL LAB HEMETOLOGY METHOD 04/10/2025 6:16 AM EST [facility] Basophils Absolute 0.00 0.00 - 0.20 K/mcL LAB HEMETOLOGY METHOD 04/10/2025 6:16 AM EST [facility] Immature Granulocytes Absolute 0.03 0.00 - 0.03 K/mcL LAB HEMETOLOGY METHOD 04/10/2025 6:16 AM EST [facility] Blood Venous blood specimen / Unknown Venipuncture / Unknown 04/10/2025 5:05 AM EST 04/10/2025 5:37 AM EST us Juvenal Alva MD LAB BLOOD ORDERABLES Final Re sult [facility] ([facility] [address] [place] [address], * Vascular US duplex lower extremity venous bilateral (04/09/2025 9:00 PM EST) Anatomical Region Laterality Modality Vascular, Abdomen Ultrasound 04/10/2025 11:3 5 AM EST Impressions 04/10/2025 11:36 AM EST NO RIGHT OR LEFT LOWER EXTREMITY DEEP VENOUS THROMBOSIS. -------- FINAL REPORT -------- Dictated By: MALCOM ALEJANDRO Dictated Date: 04/10/2025 11:35 ET Assigned Physician: MALCOM ALEJANDRO Reviewed and Electronically Signed By: MALCOM ALEJANDRO Signed Date: 04/10/2025 11:36 ET Workstation ID: [id number] Transcribed By: Self Edit Transcribed Date: 04/10/2025 11:35 ET Narrative 04/10/2025 11:36 AM EST PROCEDURE: VAS US DUPLEX LOWER EXT VENOUS BILAT INDICATION: Pulmonary embolism TECHNIQUE: 2-D and color Doppler imaging of the lower extremity venous vasculature with compression and augmentation maneuvers. COMPARISON: No priors available. FINDINGS: RIGHT: There is normal flow, compression, and augmentation from the common femoral through the popliteus. Visualized calf veins are patent. LEFT: There is normal flow, compression, and augmentation from the common femoral through the popliteus. Visualized calf veins are patent Procedure Note Malcom Alejandro MD - 04/10/2025 PROCEDURE: VAS US DUPLEX LOWER EXT VENOUS BILAT INDICATION: Pulmonary embolism TECHNIQUE: 2-D and color Doppler imaging of the lower extremity venousvasculature with compression and augmentation maneuvers. COMPARISON: No priors available. FINDINGS: RIGHT: There is normal flow, compression, and augmentation from the commonfemoral through the popliteus. Visualized calf veins are patent. LEFT: There is normal flow, compression, and augmentation from the commonfemoral through the popliteus. Visualized calf veins are patent IMPRESSION: NO RIGHT OR LEFT LOWER EXTREMITY DEEP VENOUS THROMBOSIS. -------- FINAL REPORT -------- Dictated By: MALCOM ALEJANDRO Dictated Date: 04/10/2025 11:35 ET Assigned Physician: MALCOM ALEJANDRO Reviewed and Electronically Signed By: MALCOM ALEJANDRO Signed Date: 04/10/2025 11:36 ET Workstation ID: [id number] Transcribed By: Self Edit Transcribed Date: 04/10/2025 11:35 ET us Juvenal Alva MD CV VASCULAR PROCEDURES Final Result * Troponin I high sensitivity (04/09/2025 7:49 PM EST) Only the most recent of2 resultswithin the time period is included. High Sensitivity Troponin I 7 <=34 ng/L 04/09/2025 8:39 PM EST [facility] Blood Venous blood specimen / Unknown Venipuncture / Unknown 04/09/2025 7:49 PM EST 04/09/2025 8:11 PM EST Walt Velásquez MD LAB BLOOD ORDERABLES Final Result ALISA BHATT [place] ([facility]) [facility] [address] [place] [address], [place] [phone] * CT Angio Chest wo and/or w Contrast (04/09/2025 6:03 PM EST) Anatomical Region Laterality Modality Body Computed Tomogra phy 04/09/2025 6:52 PM EST Addenda Addendum by Yang Barnett MD on 04/09/2025 6:59 PM EST ADDENDUM: This report was discussed with LACEY SALAZAR MD on Apr 09, 2025 18:58:00 EST. This document has been electronically signed by: Daniela Watts on 04/09/2025 18:59:07 Impressions 04/09/2025 6:52 PM EST 1. Small volume acute appearing pulmonary emboli. 2. Cardiomegaly with findings suggesting right heart strain, an unexpected finding for the amount of patient clot. This could also represent chronic enlargement of the right heart. This document has been electronically signed by: Yang Barnett MD on 04/09/2025 18:52:56 Narrative 04/09/2025 6:52 PM EST INDICATION: new hypoxia, elevated D-dimer, assess for pulmonary embolism CT angiography chest with contrast. 3D Postprocessing. Comparison: CT/SR - CT CHEST WO CONTRAST - 11/23/24 17:[address] - CT ANGIO CHEST WO AND OR W CONTRAST - 05/10/24 03:25 EST Findings: The heart size is enlarged. RV to LV ratio is greater than 1.2. The thoracic aorta is normal caliber. There are pulmonary emboli in segmental branches of the right lower lobe, as well as segmental Branches of the right upper lobe. Overall clot burden is low. The visualized thyroid and mediastinum are unremarkable. Coronary artery calcifications are present. Minimal atelectasis of the right lung base. There is a background of bsaf-ep-ctgvciic centrilobular emphysema. Small fat containing posterior right diaphragmatic hernia. Cholelithiasis. No acute fractures. Procedure Note Yang Barnett MD - 04/09/2025 INDICATION: new hypoxia, elevated D-dimer, assess for pulmonary embolism CT angiography chest with contrast. 3D Postprocessing. Comparison: CT/SR - CT CHEST WO CONTRAST - 11/23/24 17:[address] - CT ANGIO CHEST WO AND OR W CONTRAST - 05/10/24 03:25 EST Findings: The heart size is enlarged. RV to LV ratio is greater than 1.2. The thoracic aorta is normal caliber. There are pulmonary emboli in segmental branches of the right lowerlobe, as well as segmental Branches of the right upper lobe. Overall clotburden is low. The visualized thyroid and mediastinum are unremarkable. Coronary artery calcifications are present. Minimal atelectasis of the right lung base. There is a background of elwk-lo-vtfmelri centrilobular emphysema. Small fat containing posterior right diaphragmatic hernia. Cholelithiasis. No acute fractures. IMPRESSION: 1. Small volume acute appearing pulmonary emboli. 2. Cardiomegaly with findings suggesting right heart strain, anunexpected finding for the amount of patient clot. This could also representchronic enlargement of the right heart. This document has been electronically signed by: Yang Barnett MD on 04/09/2025 18:52:56 Walt Velásquez MD IM CT PROCEDURES Edited Re sult - Final * (ABNORMAL) Venous blood gas (04/09/2025 4:01 PM EST) pH, Jensen 7.39 7.32 - 7.42 pH 04/09/2025 4:07 PM [facility] pCO2, Jensen 40(L) 41 - 51 mmHg 04/09/2025 4:07 PM [facility] pO2, Jensen 54(H) 25 - 40 mmHg 04/09/2025 4:07 PM [facility] HCO3, Venous 24.0 22.0 - 26.0 mmol/L 04/09/2025 4:07 PM [facility] O2 Sat, Jensen 87.3 % 04/09/2025 4:07 PM EST [facility] Base Excess, Jensen -0.7 -2.0 - 2.0 mmol/L 04/09/2025 4:07 PM EST [facility] Blood Venous blood specimen / Unknown Venipuncture / Unknown 04/09/2025 4:01 PM EST 04/09/2025 4:04 PM EST us Walt Velásquez MD LAB BLOOD ORDERABLES Final Result [facility] [address] [place] [address], [place] [phone] * (ABNORMAL) Respiratory virus panel molecular study (04/09/2025 3:57 PM EST) Pathologist [facility] Adenovirus Detection by PCR Not Detected Not Detected LAB MICROBIOLOGY METHOD 04/09/2025 5:03 PM [facility] Influenza A PCR Not Detected Not Detected LAB MICROBIOLOGY METHOD 04/09/2025 5:03 PM [facility] Influenza B PCR Not Detected Not Detected LAB MICROBIOLOGY METHOD 04/09/2025 5:03 PM [facility] Coronavirus 229E Not Detected Not Detected LAB MICROBIOLOGY METHOD 04/09/2025 5:03 PM [facility] Coronavirus HKU1 Not Detected Not Detected LAB MICROBIOLOGY METHOD 04/09/2025 5:03 PM [facility] Coronavirus OC43 Not Detected Not Detected LAB MICROBIOLOGY METHOD 04/09/2025 5:03 PM [facility] Coronavirus NL63 Not Detected Not Detected LAB MICROBIOLOGY METHOD 04/09/2025 5:03 PM [facility] Parainfluenza Virus 1 Not Detected Not Detected LAB MICROBIOLOGY METHOD 04/09/2025 5:03 PM [facility] Parainfluenza Virus 2 Not Detected Not Detected LAB MICROBIOLOGY METHOD 04/09/2025 5:03 PM [facility] Parainfluenza Virus 3 Not Detected Not Detected LAB MICROBIOLOGY METHOD 04/09/2025 5:03 PM [facility] Parainfluenza Virus 4 Not Detected Not Detected LAB MICROBIOLOGY METHOD 04/09/2025 5:03 PM [facility] RSV PCR Not Detected Not Detected LAB MICROBIOLOGY METHOD 04/09/2025 5:03 PM [facility] Human Metapneumovirus A and B Not Detected Not Detected LAB MICROBIOLOGY METHOD 04/09/2025 5:03 PM [facility] Rhinovirus/Entero virus Detected(A ) Not Detected LAB MICROBIOLOGY METHOD 04/09/2025 5:03 PM [facility] Bordetella pertussis Not Detected Not Detected LAB MICROBIOLOGY METHOD 04/09/2025 5:03 PM [facility] Bordetella parapertussis Not Detected Not Detected LAB MICROBIOLOGY METHOD 04/09/2025 5:03 PM [facility] Mycoplasma pneumo by PCR Not Detected Not Detected LAB MICROBIOLOGY METHOD 04/09/2025 5:03 PM [facility] Chlamydia pneumoniae Not Detected Not Detected LAB MICROBIOLOGY METHOD 04/09/2025 5:03 PM [facility] SARS COV-2 Not Detected Not Detected LAB MICROBIOLOGY METHOD 04/09/2025 5:03 PM [facility] Swab Nasopharyngeal structure / Unknown Non-blood Collection / Unknown 04/09/2025 3:57 PM EST 04/09/2025 4:04 PM EST [facility] - 04/09/2025 5:03 PM EST Testing was performed using the [employer] Respiratory Pathogen PCR Assay. All results must be correlated with the clinical findings. Results should not be used as the sole basis for diagnosis. False Negative results may occur from the presence of sequence variants in the region targeted by the assay or the presence of inhibitors. Results may be affected by concurrent antiviral/antimicrobial therapy or levels of organisms that are below the limit of detection. Walt Velásquez MD LAB MICROBIOLOGY - GENERAL ORDERABLES Final Result [facility] ([facility] [address] [place] [address], [place] [phone] * XR Chest 1 View (04/09/2025 3:35 PM EST) Anatomical Region Laterality Modality Body Radiographic Neha ging 04/09/2025 4:08 PM EST Impressions 04/09/2025 4:09 PM EST FINDINGS/IMPRESSION: Hyperinflated lungs suggesting chronic obstructive pulmonary disease. Stable findings of emphysema with post surgical changes in the left lung. No pneumonia, pleural effusion, or pneumothorax. Cardiac silhouette is normal in size. Degenerative changes seen throughout the bones. -------- FINAL REPORT -------- Dictated By: MALCOM ALEJANDRO Dictated Date: 04/09/2025 16:08 ET Assigned Physician: MALCOM ALEJANDRO Reviewed and Electronically Signed By: MALCOM ALEJANDRO Signed Date: 04/09/2025 16:09 ET Workstation ID: [id number] Transcribed By: Self Edit Transcribed Date: 04/09/2025 16:08 ET Narrative 04/09/2025 4:09 PM EST XR CHEST 1 VIEW INDICATION: Dyspnea TECHNIQUE: XR CHEST 1 VIEW COMPARISON: 05/10/2024 Procedure Note Malcom Alejandro MD - 04/09/2025 XR CHEST 1 VIEW INDICATION: Dyspnea TECHNIQUE: XR CHEST 1 VIEW COMPARISON: 05/10/2024 IMPRESSION: FINDINGS/IMPRESSION: Hyperinflated lungs suggesting chronic obstructivepulmonary disease. Stable findings of emphysema with post surgicalchanges in the left lung. No pneumonia, pleural effusion, orpneumothorax. Cardiac silhouette is normal in size. Degenerative changesseen throughout the bones. -------- FINAL REPORT -------- Dictated By: MALCOM ALEJANDRO Dictated Date: 04/09/2025 16:08 ET Assigned Physician: MALCOM ALEJANDRO Reviewed and Electronically Signed By: MALCOM ALEJANDRO Signed Date: 04/09/2025 16:09 ET Workstation ID: [id number] Transcribed By: Self Edit Transcribed Date: 04/09/2025 16:08 ET us Walt Velásquez MD IMG XR PROCEDURES Final Res ult * 12-Lead ECG (04/09/2025 3:24 PM EST) Ventricular Rate ECG 76 BPM GEMUSE Atrial Rate 76 BPM GEMUSE P-R Interval 156 ms GEMUSE QRS Duration 76 ms GEMUSE Q-T Interval 364 ms GEMUSE QTc 409 ms GEMUSE P Wave [place] 86 degrees GEMUSE R [place] 11 degrees GEMUSE T [place] 54 degrees GEMUSE ECG Interpretation Normal sinus rhythm Normal ECG When compared with ECG of 09-MAY-2024 23:07, No significant change was found Confirmed by Imelda JON YUFENG ([id number]) on 04/10/2025 8:32:27 AM GEMUSE 04/09/2025 3:24 PM EST 04/10/2025 8:32 AM EST us Walt Velásquez MD ECG ORDERABLES Final Resul t Performing Organization Address City/[facility]/ZIP Co de Phone Number GEMUSE * (ABNORMAL) APTT (04/09/2025 3:05 PM EST) aPTT 19.4(L) 24.1 - 39.3 sec LAB COAGULATION METHOD 04/09/2025 4:00 PM EST [facility] Blood Venous blood specimen / Unknown 04/09/2025 3:05 PM EST 04/09/2025 3:38 PM EST us Walt Velásquez MD LAB BLOOD ORDERABLES Final Result Performing Organization Address City/[facility]/ZIP Co de Phone Number [facility] [address] [place] [address], * Protime-INR (04/09/2025 3:05 PM EST) Pathologist [facility] Protime 11.6 10.6 - 13.9 sec LAB COAGULATION METHOD 04/09/2025 3:55 PM EST [facility] INR 0.9 LAB COAGULATION METHOD 04/09/2025 3:55 PM EST [facility] Blood Venous blood specimen / Unknown 04/09/2025 3:05 PM EST 04/09/2025 3:38 PM EST us Walt Velásquez MD LAB BLOOD ORDERABLES Final Result Performing Organization Address [facility]/ZIP Co de Phone Number [facility] [address] [place] [address], [place] [phone] * (ABNORMAL) D-Dimer (Quantitative) (04/09/2025 3:05 PM EST) [facility] D-Dimer, Quant (D-DU) 1,536(H) <=230 ng/mL DDU LAB COAGULATION METHOD 04/09/2025 3:55 PM EST [facility] Blood Venous blood specimen / Unknown 04/09/2025 3:05 PM EST 04/09/2025 3:38 PM EST Narrative [facility] - 04/09/2025 3:55 PM EST D-Dimer <230 ng/mL (D-Dimer units) is the threshold for exclusion of DVT/PE. D-Dimer may be elevated in: Critically ill, severely infected, trauma patients, DIC, acute CVA, acute PA, unstable angina, AF, old age, , and smoking. D-Dimer may be decreased with: Initiation of heparin therapy and oral anticoagulants. us Walt Velásquez MD LAB BLOOD ORDERABLES Final Result Performing Organization Address City/[facility]/ZIP Co de Phone Number [facility] [address] [place] [address], [place] [phone] * B-Type Natriuretic Peptide (BNP) (04/09/2025 3:05 PM EST) BNP 23 <=100 pcg/mL 04/09/2025 4:15 PM EST [facility] Blood Venous blood specimen / Unknown 04/09/2025 3:05 PM EST 04/09/2025 3:38 PM EST Narrative [facility] - 04/09/2025 4:15 PM EST Over the counter supplements containing high doses of biotin may interfere with this assay. If interference is suspected, patients shoud be retested after refraining from biotin supplements for 72 hours. us Walt Velásquez MD LAB BLOOD ORDERABLES Final Result Performing Organization Address City/[facility]/ZIP Co de Phone Number [facility] [address] [place] [address], [place] [phone] * Lipase (04/09/2025 3:05 PM EST) Lipase 42 12 - 53 unit/L 04/09/2025 4:10 PM EST [facility] Blood Venous blood specimen / Unknown 04/09/2025 3:05 PM EST 04/09/2025 3:38 PM EST us Walt Velásquez MD LAB BLOOD ORDERABLES Final Result [facility] [address] [place] [address], [place] [phone] * Ethanol (04/09/2025 3:05 PM EST) Ethanol Level <3 0 - 10 mg/dL 04/09/2025 4:11 PM EST [facility] Blood Venous blood specimen / Unknown 04/09/2025 3:05 PM EST 04/09/2025 3:38 PM EST us Walt Velásquez MD LAB BLOOD ORDERABLES Final Result [facility] [address] [place] [address], [place] [phone] * Hepatic Function Panel (04/09/2025 3:05 PM EST) Total Protein 6.3 6.0 - 8.0 g/dL 04/09/2025 4:11 PM [facility] Albumin 4.4 3.2 - 5.0 g/dL 04/09/2025 4:11 PM [facility] Total Bilirubin 0.8 0.0 - 1.4 mg/dL 04/09/2025 4:11 PM [facility] Bilirubin, Direct 0.3 0.0 - 0.3 mg/dL 04/09/2025 4:11 PM [facility] Bilirubin, Indirect 0.5 0.0 - 1.1 mg/dL 04/09/2025 4:11 PM [facility] ALT (SGPT) 39 10 - 60 unit/L 04/09/2025 4:11 PM [facility] AST (SGOT) 34 10 - 42 unit/L 04/09/2025 4:11 PM [facility] Alkaline Phosphatase 96 42 - 121 unit/L 04/09/2025 4:11 PM [facility] Blood Venous blood specimen / Unknown 04/09/2025 3:05 PM EST 04/09/2025 3:38 PM EST us Walt Velásquez MD LAB BLOOD ORDERABLES Final Result [facility] [address] [place] [address], [place] [phone] * (ABNORMAL) Culture urine (03/23/2025 11:56 AM EST) Culture, Urine 10,000-49,000 CFU/mL Klebsiella pneumoniae ssp pneumoniae(A) GELA 03/25/2025 10:43 AM EST [facility] Comment: This is an edited result. Previous organism was Gram negative bacilli on 03/24/2025 at 0757 EST. Urine Urine specimen obtained by clean catch procedure / Unknown Non-blood Collection / Unknown 03/23/2025 11:56 AM EST 03/23/2025 2:24 PM EST Narrative Organism Antibiotic Method Susceptibility Klebsiella pneumoniae ssp pneumoniae Amoxicillin/Clavulanate GELA 8 ug/ml: Susceptible Klebsiella pneumoniae ssp pneumoniae Ampicillin/Sulbactam GELA 4 ug/ml: Susceptible Klebsiella pneumoniae ssp pneumoniae Piperacillin/Tazobactam GELA <=4 ug/ml: Susceptible Klebsiella pneumoniae ssp pneumoniae Cefazolin (Urine) GELA 2 ug/ml: Susceptible Klebsiella pneumoniae ssp pneumoniae Cefoxitin GELA <=4 ug/ml: Susceptible Klebsiella pneumoniae ssp pneumoniae Ceftazidime GELA <=0.5 ug/ml: Susceptible Klebsiella pneumoniae ssp pneumoniae Ceftriaxone GELA <=0.25 ug/ml: Susceptible Klebsiella pneumoniae ssp pneumoniae Cefepime GELA <=0.12 ug/ml: Susceptible Klebsiella pneumoniae ssp pneumoniae Meropenem GELA <=0.25 ug/ml: Susceptible Klebsiella pneumoniae ssp pneumoniae Amikacin GELA 2 ug/ml: Susceptible Klebsiella pneumoniae ssp pneumoniae Gentamicin GELA <=1 ug/ml: Susceptible Klebsiella pneumoniae ssp pneumoniae Ciprofloxacin GELA <=0.06 ug/ml: Susceptible Klebsiella pneumoniae ssp pneumoniae Levofloxacin GELA <=0.12 ug/ml: Susceptible Klebsiella pneumoniae ssp pneumoniae Nitrofurantoin GELA 64 ug/ml: Intermediate Klebsiella pneumoniae ssp pneumoniae Trimethoprim/Sulfamethoxazo le GELA <=20 ug/ml: Susceptible us Spring Oconnell MD LAB MICROBIOLOGY - GENERAL ORDER ALISHA Final Result [facility] ([facility]) [facility] [address] [place] [address], * Thyroid stimulating hormone with reflex to free t4 and free t3 (03/23/2025 11:49 AM EST) Pathologist [facility] TSH 0.58 0.40 - 4.00 mcIU/mL 03/23/2025 4:05 PM EST [facility] Blood Venous blood specimen / Unknown Venipuncture / Unknown 03/23/2025 11:49 AM EST 03/23/2025 11:49 AM EST Spring Oconnell MD LAB BLOOD ORDERABLES Final Resul t Performing Organization Address City/[facility] Co de Phone Number [facility] [address] [place] [address], [place] [phone] * (ABNORMAL) Thyroid stimulating hormone (03/01/2025 2:54 PM EDT) [facility] TSH 0.18(L) 0.40 - 4.00 mcIU/mL LAB CHEMISTRY METHOD 03/01/2025 8:27 PM EDT [facility] Blood Venous blood specimen / Unknown Venipuncture / Unknown 03/01/2025 2:54 PM EDT 03/01/2025 2:54 PM EDT Lexis [facility] LAB BLOOD ORDERABLES Fin al Result Performing Organization Address [facility] de Phone Number [facility] [address] [place] [address], [place] [phone] * (ABNORMAL) Folate (03/01/2025 2:54 PM EDT) Pathologist [facility] Folate >20.0(H) 2.8 - 17.0 ng/ml LAB CHEMISTRY METHOD 03/01/2025 6:44 PM EDT [facility] Blood Venous blood specimen / Unknown Venipuncture / Unknown 03/01/2025 2:54 PM EDT 03/01/2025 2:54 PM EDT Lexis CALLOWAY LAB BLOOD ORDERABLES Fin al Result Performing Organization Address City/[facility]/ZIP Co de Phone Number [facility] [address] [place] [address], [place] [phone] * (ABNORMAL) Vitamin B12 (03/01/2025 2:54 PM EDT) [facility] Vitamin B-12 >2,000(H) 250 - 900 pcg/mL LAB CHEMISTRY METHOD 03/01/2025 6:44 PM EDT [facility] Blood Venous blood specimen / Unknown Venipuncture / Unknown 03/01/2025 2:54 PM EDT 03/01/2025 2:54 PM EDT Lexis CALLOWAY LAB BLOOD ORDERABLES Fin al Result Performing Organization Address [facility] de Phone Number [facility] [address] [place] [address], * (ABNORMAL) Comprehensive metabolic panel (03/01/2025 2:54 PM EDT) [facility] Sodium 136 133 - 145 mmol/L LAB CHEMISTRY METHOD 03/01/2025 6:44 PM EDT [facility] Potassium 4.5 3.5 - 5.5 mmol/L LAB CHEMISTRY METHOD 03/01/2025 6:44 PM EDT [facility] Chloride 106 96 - 110 mmol/L LAB CHEMISTRY METHOD 03/01/2025 6:44 PM EDT [facility] CO2 22 21 - 32 mmol/L LAB CHEMISTRY METHOD 03/01/2025 6:44 PM EDT [facility] Anion Gap 8 3 - 11 LAB CHEMISTRY METHOD 03/01/2025 6:44 PM EDT [facility] Glucose 104(H) 70 - 100 mg/dL LAB CHEMISTRY METHOD 03/01/2025 6:44 PM EDT [facility] BUN 47(H) 5 - 25 mg/dL LAB CHEMISTRY METHOD 03/01/2025 6:44 PM [facility] Creatinine 1.19(H) 0.50 - 1.10 mg/dL LAB CHEMISTRY METHOD 03/01/2025 6:44 PM [facility] eGFR 46(L) >=60 mL/min/1. 73m2 LAB CHEMISTRY METHOD 03/01/2025 6:44 PM [facility] Comment:Calculation based on the Chronic Kidney Disease Epidemiology Collaboration (CKD-EPI) equation refit without adjustment for race. BUN/Creatinine Ratio 39.5 LAB CHEMISTRY METHOD 03/01/2025 6:44 PM [facility] Calcium 9.5 8.5 - 10.5 mg/dL LAB CHEMISTRY METHOD 03/01/2025 6:44 PM [facility] AST (SGOT) 17 10 - 42 unit/L LAB CHEMISTRY METHOD 03/01/2025 6:44 PM [facility] ALT (SGPT) 44 10 - 60 unit/L LAB CHEMISTRY METHOD 03/01/2025 6:44 PM [facility] Alkaline Phosphatase 91 42 - 121 unit/L LAB CHEMISTRY METHOD 03/01/2025 6:44 PM [facility] Total Protein 6.2 6.0 - 8.0 g/dL LAB CHEMISTRY METHOD 03/01/2025 6:44 PM [facility] Albumin 3.9 3.2 - 5.0 g/dL LAB CHEMISTRY METHOD 03/01/2025 6:44 PM [facility] Total Bilirubin 0.7 0.0 - 1.4 mg/dL LAB CHEMISTRY METHOD 03/01/2025 6:44 PM [facility] Blood Venous blood specimen / Unknown Venipuncture / Unknown 03/01/2025 2:54 PM EDT 03/01/2025 2:54 PM EDT [facility] LAB BLOOD ORDERABLES Fin al Result [facility] [address] [place] [address], [place] [phone] * US Head Neck Soft Tissue (01/27/2025 1:13 PM EDT) Anatomical Region Laterality Modality Head and Neck Ultrasound 01/27/2025 5:23 PM EDT Narrative 01/27/2025 5:27 PM EDT Thyroid ultrasound. History thyroid nodules seen on CT scan. No prior thyroid ultrasounds are available for comparison. Thyroid gland is heterogeneous in echotexture with normal vascularity on color Doppler examination. Right thyroid lobe measures 4.8 x 2.4 x 1.8 cm. There is a mixed echogenicity nodule with cystic and solid components and circumscribed borders in the upper pole measuring 0.8 x 0.6 x 0.7 cm. There is a mixed echogenicity nodule with cystic and solid components in the lower pole measuring 0.8 x 0.6 x 0.9 cm. Left thyroid lobe measures 4.8 x 2.3 x 2.2 cm. There is a circumscribed mixed echogenicity nodule in the upper pole measuring 0.8 x 0.5 x 0.8 cm. There is mixed echogenicity circumscribed nodule in the midpole measuring 1.2 x 0.8 x 1.2 cm. There is a predominantly solid partially circumscribed nodule in the lower pole measuring 1.4 x 1 x 1.4 cm. There is a hypoechoic nodule with partially circumscribed borders measuring 1.3 x 0.8 x 1.1 cm. Isthmus measures 2 mm. CONCLUSIONS: Multinodular goiter. Ultrasound-guided biopsy of the nodules in the lower pole of the left thyroid lobe may be considered. Other nodules could be followed ultrasonographically. -------- FINAL REPORT -------- Dictated By: Diana Grant Dictated Date: 01/27/2025 17:23 ET Assigned Physician: Diana Grant Reviewed and Electronically Signed By: Diana Grant Signed Date: 01/27/2025 17:27 ET Workstation ID: [id number] Transcribed By: Self Edit Transcribed Date: 01/27/2025 17:23 ET Procedure Note Diana Grant MD - 01/27/2025 Thyroid ultrasound. History thyroid nodules seen on CT scan. No prior thyroid ultrasounds areavailable for comparison. Thyroid gland is heterogeneous in echotexture with normal vascularity oncolor Doppler examination. Right thyroid lobe measures 4.8 x 2.4 x 1.8 cm. There is a mixedechogenicity nodule with cystic and solid components and circumscribedborders in the upper pole measuring 0.8 x 0.6 x 0.7 cm. There is a mixedechogenicity nodule with cystic and solid components in the lower polemeasuring 0.8 x 0.6 x 0.9 cm. Left thyroid lobe measures 4.8 x 2.3 x 2.2 cm. There is a circumscribedmixed echogenicity nodule in the upper pole measuring 0.8 x 0.5 x 0.8 cm.There is mixed echogenicity circumscribed nodule in the midpole measuring1.2 x 0.8 x 1.2 cm. There is a predominantly solid partially circumscribednodule in the lower pole measuring 1.4 x 1 x 1.4 cm. There is a hypoechoicnodule with partially circumscribed borders measuring 1.3 x 0.8 x 1.1cm. Isthmus measures 2 mm. CONCLUSIONS: Multinodular goiter. Ultrasound-guided biopsy of the nodulesin the lower pole of the left thyroid lobe may be considered. Othernodules could be followed ultrasonographically. -------- FINAL REPORT -------- Dictated By: Diana Grant Dictated Date: 01/27/2025 17:23 ET Assigned Physician: Diana Grant Reviewed and Electronically Signed By: Diana Grant Signed Date: 01/27/2025 17:27 ET Workstation ID: [id number] Transcribed By: Self Edit Transcribed Date: 01/27/2025 17:23 ET us [facility] US PROCEDURES Final Result * BD Bone Density DXA Axial Skeleton (10/12/2024 1:18 PM EDT) Anatomical Region Laterality Modality Wrist, Hip, L-spine Bone Densito metry 10/13/2024 12:1 8 PM EDT Impressions 10/13/2024 12:19 PM EDT Osteoporosis. Telelinda CALLOWAY ([id number]) -------- FINAL REPORT -------- Dictated By: Amy Rios Dictated Date: 10/13/2024 12:18 ET Assigned Physician: Amy Rios Reviewed and Electronically Signed By: Amy Rios Signed Date: 10/13/2024 12:19 ET Workstation ID: [id number] Transcribed By: Self Edit Transcribed Date: 10/13/2024 12:18 ET Narrative 10/13/2024 12:19 PM EDT History: Low estrogen state due to menopause. Chronic glucocorticoid use. Current smoker. Personal history of fracture. Comparison: 04/19/11 Findings: Bone densitometry is performed utilizing dual energy x-ray absorptiometry (DXA) in the [employer] unit. The lumbar spine and proximal femora are evaluated in the AP projection. The FRAX questionaire was completed. The results indicate osteoporosis, with a right femoral neck T-score of -2.6. The Z score is -0.5, indicating bone mineral density within the range of normal for age. There have been statistically significant decreases in bone mineral density in both total femur since the previous study. The detailed DEXA report will be mailed to the referring physician's office. DualFemur FRAX: 10-year Probability of Fracture: Major Osteoporotic 41.3 percent Hip 22.6 percent. Procedure Note Amy Rios MD - 10/13/2024 History: Low estrogen state due to menopause. Chronic glucocorticoid use.Current smoker. Personal history of fracture. Comparison: 04/19/11 Findings: Bone densitometry is performed utilizing dual energy x-ray absorptiometry(DXA) in the [employer] unit. The lumbar spine and proximal femora areevaluated in the AP projection. The FRAX questionaire was completed. The results indicate osteoporosis, with a right femoral neck T-score of-2.6. The Z score is -0.5, indicating bone mineral density within therange of normal for age. There have been statistically significant decreases in bone mineraldensity in both total femur since the previous study. The detailed DEXAreport will be mailed to the referring physician's office. DualFemur FRAX: 10-year Probability of Fracture: Major Osteoporotic 41.3percent Hip 22.6 percent. IMPRESSION: Osteoporosis. Jane CALLOWAY ([id number]) -------- FINAL REPORT -------- Dictated By: Amy Rios Dictated Date: 10/13/2024 12:18 ET Assigned Physician: Amy Rios Reviewed and Electronically Signed By: Amy Rios Signed Date: 10/13/2024 12:19 ET Workstation ID: [id number] Transcribed By: Self Edit Transcribed Date: 10/13/2024 12:18 ET Lexis CALLOWAY IMG DXA PROCEDURES Final Result * Lipid panel with reflex to direct LDL (08/26/2024 8:44 AM EDT) Cholesterol 122 0 - 200 mg/dL LAB CHEMISTRY METHOD 08/26/2024 12:24 PM [facility] Triglycerides 71 0 - 150 mg/dL LAB CHEMISTRY METHOD 08/26/2024 12:24 PM [facility] HDL 74 >=40 mg/dL LAB CHEMISTRY METHOD 08/26/2024 12:24 PM [facility] LDL Calculated 34 0 - 100 mg/dL LAB CHEMISTRY METHOD 08/26/2024 12:24 PM [facility] VLDL Cholesterol Mino 14.2 mg/dL LAB CHEMISTRY METHOD 08/26/2024 12:24 PM [facility] Non HDL Chol. (LDL+VLDL) 48 <145 mg/dL LAB CHEMISTRY METHOD 08/26/2024 12:24 PM [facility] Chol/HDL Ratio 1.6 0.0 - 4.4 LAB CHEMISTRY METHOD 08/26/2024 12:24 PM [facility] Blood Venous blood specimen / Unknown Venipuncture / Unknown 08/26/2024 8:44 AM EDT 08/26/2024 11:11 AM EDT us Lexis CALLOW[facility] LAB BLOOD ORDERABLES Fin al Result [facility] LAB [address] [place] [address], * CT LUNG SCREENING LOW DOSE (05/21/2022 11:02 AM EST) Anatomical Region Laterality Modality Computed Tomogra phy 05/20/2022 3:51 PM EST Narrative 05/21/2022 11:02 AM EST [facility] Diagnostic Imaging Department [address] [place] [address] Patient: RAMONAKRYSTYNA D.O.B./Age/Sex: 1945 - 76 - F Unit#: [id number] Location/Status: SPDICATLS/REG CLI Mnemonic/Ordering Site: [facility] Ordering Physician: LINH GUEVARA MD CT Lung Screening Low Dose - 05/20/221557 History: 76 year-old 63 pack-year current smoker, asymptomatic, for lung cancer screening. Partial left upper lobectomy in 2012. Comparison: Thoracic CTA 04/26/20, pre-op noncontrast thoracic CT 02/19/13 Technique: Helical volumetric imaging of the thorax was performed, using low- dose technique, without IV contrast. DLP: 160.12 mGy/cm CTDIvol: 4.83 mGy [facility] VCT Iterative reconstruction technique Findings: Lungs and Airways: The trachea and central bronchial tree are patent. Scattered foci of peripheral mucous plugging are noted. There is a thin layer of lobulated material along the right anterolateral aspect of the distal tracheal lumen, most likely adherent mucus. Partial left upper lobectomy sequelae are again noted. There is patchy centrilobular emphysema. Thin bandlike opacity at the lung bases is consistent with subsegmental atelectasis. Multiple homogeneously calcified pulmonary nodules are again seen, consistent with old granulomatous disease. There are numerous 2 to 3 mm solid, noncalcified nodules scattered in both lungs which are without significant change. A 4 mm solid, noncalcified nodule is unchanged in the anterolateral aspect of the right lower lobe (image 165 series 4). No suspicious developing nodules are seen. Pleura: No pleural or pericardial effusions are identified. Base of neck, mediastinum and heart: Mediastinal and right hilar lymphadenopathy noted on the most recent study has resolved and most likely represented reactive hyperplasia that time. The heart is normal in size. Moderate coronary artery calcification is noted. Soft tissues: The overlying soft tissues are unremarkable. Abdomen: This study was performed without contrast and with lower than standard dose. These factors reduce the sensitivity for detection of small lesions in the upper abdomen. No significant abnormality is seen. Impression: No suspicious developing pulmonary nodule. Lung RADS 2: Benign Appearance or Behavior - Continue annual screening with LDCT in 12 months. [id number] [id number] [id number] [id number] Dictating Physician: AMY RIOS MD Electronically Signed by: AMY RIOS MD Dic Date/Time: 05/21/22 1047 Sign date/Time: 05/21/22 1102 Procedure Note Amy Rios MD - 06/06/2023 [facility] Diagnostic Imaging Department [address] [place] [address] Patient: KRYSTYNA HIGHTOWER /Age/Sex: 1945 76 - F Unit#: [id number] Location/Status: SPDICATLS/REG CLI Mnemonic/Ordering Site: [facility] Ordering Physician: LINH GUEVARA MD CT Lung Screening Low Dose - 05/20/221557 History: 76 year-old 63 pack-year current smoker, asymptomatic, for lungcancer screening. Partial left upper lobectomy in 2012. Comparison: Thoracic CTA 04/26/20, pre-op noncontrast thoracic CT02/19/13 Technique: Helical volumetric imaging of the thorax was performed, usinglow- dose technique, without IV contrast. DLP: 160.12 mGy/cm CTDIvol: 4.83 mGy [facility] VCT Iterative reconstruction technique Findings: Lungs and Airways: The trachea and central bronchial tree are patent.Scattered foci of peripheral mucous plugging are noted. There is a thin layer oflobulated material along the right anterolateral aspect of the distal tracheallumen, most likely adherent mucus. Partial left upper lobectomy sequelae are againnoted. There is patchy centrilobular emphysema. Thin bandlike opacity at the lungbases is consistent with subsegmental atelectasis. Multiple homogeneously calcified pulmonary nodules are again seen,consistent with old granulomatous disease. There are numerous 2 to 3 mm solid,noncalcified nodules scattered in both lungs which are without significant change. A 4mm solid, noncalcified nodule is unchanged in the anterolateral aspect of theright lower lobe (image 165 series 4). No suspicious developing nodules are seen. Pleura: No pleural or pericardial effusions are identified. Base of neck, mediastinum and heart: Mediastinal and right hilar lymphadenopathy noted on the most recent study has resolved and mostlikely represented reactive hyperplasia that time. The heart is normal in size. Moderate coronary artery calcification is noted. Soft tissues: The overlying soft tissues are unremarkable. Abdomen: This study was performed without contrast and with lower thanstandard dose. These factors reduce the sensitivity for detection of small lesionsin the upper abdomen. No significant abnormality is seen. Impression: No suspicious developing pulmonary nodule. Lung RADS 2: Benign Appearance or Behavior - Continue annual screeningwith LDCT in 12 months. [id number] [id number] G9557 G9551 Dictating Physician: AMY RIOS MD Electronically Signed by: AMY RIOS MD Dic Date/Time: 05/21/22 1047 Sign date/Time: 05/21/22 1102 Linh Guevara MD IMG CT PROCEDURES Final Result from Last 3 Months or Most Recently Relevant to Health Maintenance Additional Health Concerns Infection Onset Date Last Indicated Enterovirus 04/09/2025 04/09/2025 Rhinovirus 04/09/2025 04/09/2025 Insurance [employer] MED[employer] [place] - [place] Advance Directives Documents on File Type Date Recorded Patient Instruction Librarian Expl anation Health Care Decision (hx) 04/09/2013 ADVANCE DIRECTIVE Health Care Decision (hx) 04/09/2013 ADVANCE DIRECTIVE Health Care Decision (hx) 04/09/2013 ADVANCE DIRECTIVE Health Care Decision (hx) 04/09/2013 ADVANCE DIRECTIVE Health Care Decision (hx) 04/09/2013 ADVANCE DIRECTIVE Health Care Decision (hx) 04/09/2013 ADVANCE DIRECTIVE Health Care Decision (hx) 04/09/2013 ADVANCE DIRECTIVE Health Care Decision (hx) 04/09/2013 ADVANCE DIRECTIVE Health Care Decision (hx) 04/09/2013 ADVANCE DIRECTIVE Health Care Decision (hx) 04/09/2013 ADVANCE DIRECTIVE Health Care Decision (hx) 04/09/2013 ADVANCE DIRECTIVE Health Care Decision (hx) 04/09/2013 ADVANCE DIRECTIVE Health Care Decision (hx) 04/09/2013 ADVANCE DIRECTIVE Health Care Decision (hx) 04/09/2013 ADVANCE DIRECTIVE Health Care Decision (hx) 04/09/2013 ADVANCE DIRECTIVE Health Care Decision (hx) 04/09/2013 ADVANCE DIRECTIVE Health Care Decision (hx) 04/09/2013 ADVANCE DIRECTIVE Health Care Decision (hx) 04/09/2013 ADVANCE DIRECTIVE Health Care Decision (hx) 04/09/2013 ADVANCE DIRECTIVE Health Care Decision (hx) 04/09/2013 ADVANCE DIRECTIVE Health Care Decision (hx) 04/09/2013 ADVANCE DIRECTIVE Health Care Decision (hx) 04/09/2013 ADVANCE DIRECTIVE Health Care Decision (hx) 04/09/2013 ADVANCE DIRECTIVE Health Care Decision (hx) 04/09/2013 ADVANCE DIRECTIVE Health Care Decision (hx) 04/09/2013 ADVANCE DIRECTIVE Health Care Decision (hx) 04/09/2013 ADVANCE DIRECTIVE Health Care Decision (hx) 04/09/2013 ADVANCE DIRECTIVE Health Care Decision (hx) 04/09/2013 ADVANCE DIRECTIVE Health Care Decision (hx) 04/09/2013 ADVANCE DIRECTIVE Health Care Decision (hx) 04/09/2013 ADVANCE DIRECTIVE Health Care Decision (hx) 04/09/2013 ADVANCE DIRECTIVE Health Care Decision (hx) 04/09/2013 ADVANCE DIRECTIVE Health Care Decision (hx) 04/09/2013 Heavenly Ochoa Polys ADVANCE DIR ECTIVE * Full Code - Default (Latest Code Status on File) Date Activated Date Inactivated Comments 04/09/2025 6:20 PM 04/12/2025 5:08 PM This is orde r is used when code status has not been discussed with the patient, or code status is otherwise unknown/unconfirmed To update the patient's code status, place a code status order. Do not modify or discontinue any currently active code status orders. * Full Code - Default Date Activated Date Inactivated Comments 05/10/2024 5:33 AM 05/11/2024 3:15 PM This is order is used when code status has not been discussed with the patient, or code status is otherwise unknown/unconfirmed To update the patient's code status, place a code status order. Do not modify or discontinue any currently active code status orders. Healthcare Agents on File Name Relationship Healthcare Agent Relationship Communication Heavenly Sellers Daughter Health Care Agent Jodee Farah Alternate Health Care Agent Care Teams Special Investigation Unit Investigator Relationship Specialty Start Date End Date Spring Oconnell MD [address] [place] [phone] PCP - General Internal Medicine 03/11/25
--- OUTSIDE RECORDS SUMMARY | 2025-04-18 21:42 | XMS_ITS | Encounter Summary ---
Author Organization [facility] Address [address] [place] [address] Care Team Providers Care Autism Motor Specialist Name Role Phone Spring Oconnell MD Primary Care Provider [phone] Reason for Visit * Reason Onset Date Comments Transitional Care Management 04/13/2025 Encounter Details Date Type Department Care Team ([facility] st Contact Info) Description 04/13/2025 Telephone Internal Medicine - [address] [place] [address] Comfort Zhou RN Social History Tobacco Use Types Packs/Day Years [...] care for your loved ones. For example, school child care attendant or elderly care for an older adult? [...] No 05/10/2024 7:51 AM EST Doles, As hley L, RN * Are you blind or do [...] AM EST Doles, As dawna Enrique RN documented as of this encounter Mental Status * Because of a physical, mental, or emotional condition, do you have serious difficulty concentrating, remembering, or making decisions? (5 years old or older) Answer Entry Date Author No 05/10/2024 7:51 AM EST Doles, As dawna Enrique RN documented in this encounter Progress Notes * Comfort Zhou RN - 04/13/2025 9:03 AM EST Transitional Care Management Note: Non Mnxd-tx-Synd Visit Patient: Krystyna Hightower : 1945 PCP: Spring Oconnell MD Clinical Office Staff: Comfort Zhou RN Discharge date: 04/12/25 Situation: Krystyna Hightower is a 79 y.o. female Patient discharged from: [facility]. Call Status: Completed with the patient. Background: Admission date: 04/09/25 Discharge date: 04/12/25 Patient discharged from: [facility] with discharge diagnosis of PE Rhinovirus infection COPD with acute exacerbation Acute hypoxic respiratory failure ER visits or hospital admissions since discharge: No Assessment: The Patient's Current symptoms since discharge: still has some labored breathing but is feeling overall improved. there are no other symptoms. Patient able to complete routine daily activities: No (Comment) (still resting and recovering, is feeling better compared to the hospital) Additional problems or concerns addressed: No Patient has written copy of discharge instructions: Yes Patient understands discharge instructions: Yes Patient questions/concerns regarding discharge: none Follow up appointment scheduled with PCP or specialist: Yes PCP Follow up appointment date: 04/19/25 Plan to attend the follow up appointment: Yes Barriers identified to miss the follow up appointment: No Patient questions/concerns regarding medications: none New prescriptions filled: Yes Taking medications as prescribed: Yes Patient has all medications as ordered: Yes Accurate patient teach back regarding plan of care, red flag symptoms, and when to seek treatment. Patient reports no additional questions/concerns/needs at this time, agrees to contact office if anyarise. Recommendations: Pt to continue w/ new medications and will follow instructions given to her by the hospital. Will call us back if any issues/questions/concerns prior to her TCM scheduled for next week Time spent with patient (minutes): 5 Comfort Zhou RN 04/13/2025 9:10 AM EST documented in this encounter Plan of Treatment Upcoming Encounters Date Type Department Care Team (Late st Contact Info) Description 04/19/2025 1:45 PM EST Office Visit Internal Medicine - [address] [phone] Spring Oconnell MD [address] [place] [phone] 05/02/2025 1:30 PM EST Office Visit Orthopedic Surgery - [place] [address] [phone] Niraj Palacios DPM [address] [phone] 09/21/2025 10:15 AM EDT Office Visit Pulmonology - [place] [address] [phone] Shelia Mandujano MD [address] [place] [phone] 09/23/2025 11:15 AM EDT Office Visit Internal Medicine - [place] [address] [phone] Spring Oconnell MD [address] [place] [phone] documented as of this encounter Visit Diagnoses Not on filedocumented in this encounter Additional Health Concerns Infection Onset Date Last Indicated Resolved Time Enterovirus 04/09/2025 04/09/2025 Rhinovirus 04/09/2025 04/09/2025 Assessment Noted Time PHQ-9 Depression Total Score: 12 025 1:13 PM EDT documented as of this encounter Care Teams Autism Motor Specialist Relationship Specialty Start Date End Date Spring Oconnell MD [address] [place] [address] [address] [place] [address] PCP - General Internal Medicine 03/11/25 documented as of this encounter
--- OUTSIDE RECORDS SUMMARY | 2025-04-18 21:42 | XMS_ITS ---
Author Name [facility] Organization Unknown Care Team Organization Name Specialty Phone Email Start Date End Da te [facility] ACO 12/22/2024 [facility] MIKALA ROSARIO Primary Care 09/09/2022 12/22/19 [facility] Termed, PROVIDER Primary Care 07/10/202212/03 [facility] Faye Muro Primary Care 03/12/2022
--- OUTSIDE RECORDS SUMMARY | 2025-04-18 21:42 | XMS_ITS | Encounter Summary ---
Author Organization [facility] Address [address] [place] [address] Care Team Providers Care Skin Specialist Name Role Phone Spring Oconnell MD Primary Care Provider [phone] Reason for Referral * Consultation (Routine) - Authorized Specialty Diagnoses / Procedures Referred By Contac t Referred To Contact Pulmonary Disease / Pulmonology Diagnoses Other pulmonary embolism without acute cor pulmonale (CMS/HCC V24, CMS/HCC V28) Spring Oconnell MD [address] [place] [address] Phone: tel: fax: Shelia Mandujano MD [address] [address] Phone: tel: fax: Referral ID Status Reason Start Date Expiration Date Visits Requested Visits Authorized [id number] Authorized Specialty Services Required 04/04/2025 04/04/2026 12 12 Reason for Visit * Reason Onset Date Comments Referral 04/04/2025 PULMONOLOGY Encounter Details Date Type Department Care Team ([facility] Contact Info) Description 04/04/2025 Telephone Internal Medicine - [place] 175 [facility] [address] [place] [address] Spring Oconnell MD [address] [place] [address] Social History Tobacco Use Types Packs/Day Years [...] for your loved ones. For example, school childcare attendant or elderly care for an older [...] Date Record ed Physical Abuse Unrecognized value 05/10/2024 Verbal Abuse Unrecognized value 05/10/2024 Comments No Sex and Gender Information Value [...] 05/10/2024 7:51 AM EST Doles, As dawna Enirque RN * Because of a physical, mental, [...] documented in this encounter Progress Notes * Helena Alva - 04/04/2025 2:05 PM EST What insurance does the patient have today? Payor: [facility] MEDICARE ADVANTAGE and MEDICAID - [place] Referrals cannot be processed if the insurance is not accurate. If the insurance listed above is NO BILLING INFORMATION FOUND FOR THIS ENCOUNTER then the patients correct insurance must be obtainedand registered in [facility] or their referral can not be processed. Referred To Provider (Include first and last name): Shelia Mandujano MD NPI (if known): [id number] Order/Specialty requested Pulmonology Chief Complaint (Note: This is not a body part or a procedure): I26.99 Has the patient seen provider for this problem/Dx before? yes Referred To Provider Address: [address] [place] [address] Referred To Provider Referred To Provider Does patient have an appointment scheduled?: yes If yes, what is the date of the appointment?: 09/21/25 Is this a retro request? no Number of visits requested: 12 Is this appointment related to: MVA or worker compensation? no documented in this encounter Plan of Treatment Upcoming Encounters Date Type Department Care Team ([facility] st Contact Info) Description 04/19/2025 1:45 PM EST Office Visit Internal Medicine - [address] [phone] Spring Oconnell MD [address] [place] [phone] 05/02/2025 1:30 PM EST Office Visit Orthopedic Surgery - [place] [address] [phone] Niraj Palacios DPM [address] [phone] 09/21/2025 10:15 AM EDT Office Visit Pulmonology - [place] [address] [phone] Shelia Mandujano MD [address] [place] [phone] 09/23/2025 11:15 AM EDT Office Visit Internal Medicine - [place] 175 [facility] [address] [place] [phone] Spring Oconnell MD [address] [place] [phone] Scheduled Referrals Name Type Priority Associated Diagnoses Order Schedule Ambulatory referral to Pulmonology Outpatient Referral Routine Other pulmonary embolism without acute cor pulmonale ([facility] V24, [facility] V28) 1 Occurrences starting 04/04/2025 until 04/04/2026 documented as of this encounter Visit Diagnoses Diagnosis Other pulmonary embolism without acute cor pulmonale ([facility] V24, [facility] V28)- Primary documented in this encounter Additional Health Concerns Infection Onset Date Last Indicated Resolved Time Respiratory Rule-Out 04/09/2025 04/09/2025 025 5:03 PM EST COVID-19 Rule-Out 04/09/2025 04/09/2025 04/09/2025 5:03 PM EST Enterovirus 04/09/2025 04/09/2025 Rhinovirus 04/09/2025 04/09/2025 Assessment Noted Time PHQ-9 Depression Total Score: 12 025 1:13 PM EDT documented as of this encounter Care Teams Skin Specialist Relationship Specialty Start Date End Date Spring Oconnell MD [address] [phone] PCP - General Internal Medicine 03/11/25 documented as of this encounter
--- OUTSIDE RECORDS SUMMARY | 2025-04-18 21:42 | XMS_ITS | Encounter Summary ---
Author Organization [employer] Address [address] [facility] [address] [place] [address] Care Team Providers Care Bin Operator Name Role Phone Unavailable Primary Care Provider Unavailabl e Encounter Details Date Type Department Care Team (Latest Contact Info) Description 09/15/2018 Abstract C CONVERSIONS Dental, Provider, DDS Social History Tobacco Use Types Packs/Day Years Used Date Smoking Tobacco: Never Assessed Comments Unknown Sex and Gender Information Value Date Recorded Sex Assigned at Female 03/04/2022 10:35 AM EDT Legal Sex Female 10:35 AM EDT Gender Identity Female 03/04/2022 10:35 AM EDT Sexual Orientation Straight 03/04/2022 10 :35 AM EDT documented as of this encounter Plan of Treatment Not on file documented as of this encounter Visit Diagnoses Not on filedocumented in this encounter
--- OUTSIDE RECORDS SUMMARY | 2025-04-18 21:42 | XMS_ITS | Patient Health Record ---
Author Organization [facility] Address [address] [place] [address] Care Team Providers Care Steam Service Inspector Name Role Phone SARIAH GILBERT MD Primary Care Provider LUIS Powers Unavailable [phone] Allergies Allergen (clinical drug ingredient) Drug/Non Drug Allergy documented on EMR Reaction Allergy Type Onset Date Status potassium chloride Potassium Chloride Unknown Drug Allergy Active Sulfamethoxazole Unknown Drug Allergy Active Reason For Referral No Information Medications Medication SIG (Take, Route, Frequency, Duration) Notes Start Date End Date Status Spironolactone 25 MG Tablet 1/2 tab orally once a day Active dilTIAZem HCl 180 MG/24 HOURS CAPSULE, EXTENDED RELEASE 1 CAP(S) ORALLY ONCE A DAY; Duration: 30 DAY(S) NAME ONLY Conversion from Multum Review and pick correct strength-formulati on from Review Trackers options. If intended option is not shown, discontinue and re-order from Quick Search. Active Atorvastatin Calcium 40 MG Tablet 1 tab(s) orally once a day; Duration: 30 day(s) Active Celecoxib 100 MG Capsule 1 cap(s) orally once a day Active Multivitamin - Tablet 1 tab(s) orally once a day; Duration: 30 day(s) Active B-12 2500 MCG Tablet 1 tab(s) sublingually once a day; Duration: 30 day(s) Active Vitamin D3 125 MCG (5000 UT) Capsule 1 cap(s) orally once a day Active Aspir-Low 81 MG Tablet Delayed Release 1 tab(s) orally once a day; Duration: 30 day(s) Active Social History Tobacco Use: Social History Observation Description Date Details (start date - stop date) Current Smoker NA - NA Social History Tobacco Use: Social Info Question Answer Notes Smoking Are you a: current smoker How often do you smoke Cigarettes? every day How many cigarettes a day do you smoke? 11-20 Additional Details Category Social Info Options Details General Occupation: Retired asbestos exposure: no Past year's travels: None alcohol use: yes rarely drug use: no Hobbies/Exercise habits: none Coffee/Tea/Soda: yes Coffee Marital Status single experience no smokers in household no Problems Problem Type SNOMED Code ICD Code Onset Dates Problem Status W/U Status Risk Notes Problem Primary osteoarthritis (705546714) Primary osteoarthritis involving multiple joints (M89.49) Active confirmed Plan Of Treatment No Information Insurance Providers Payer Name Payer Address Payer Phone Subscriber Number Group Number Insured Name Patient Relationship to Insured Coverage Start Date Coverage End Date [employer] PREFERRED [address] [place] [address] [phone] [id number] LINETTE HERRING Self - patient is the insured Medical (General) History Medical History History ICD Code OA hypercholesterolemia depression hypertension IBS osteoporosis covid 19 positive jun 2019 Traumatic right eye blindness SVT, s/p ablation. Surgical History Surgery Date(Month/Year) left lung surgery 03/27/13 partial colectomy 06/07/11 Bladder sling 11/10/06 Breast surgery 04/06/2003 Bartholin gland 1966 appendectomy 1958 3 eye surgeries /Blind in right eye 1949 Hospitalization History Reason Date(Month/Year) Covid 19 04/26/2020
--- OUTSIDE RECORDS SUMMARY | 2025-04-18 21:42 | XMS_ITS | Encounter Summary ---
Author Organization [facility] Address [address] [place] [address] Care Team Providers Care Sand Hauler Name Role Phone Spring Oconnell MD Primary Care Provider [phone] Encounter Details Date Type Department Care Team ([facility] st Contact Info) Description 03/14/2025 Telephone Internal Medicine - [address] [place] [address] Spring Oconnell MD [address] [place] [phone] Social History Tobacco Use Types Packs/Day Years [...] for your loved ones. For example, child & adolescent psychiatrist or elderly care for an older adult? [...] No 05/10/2024 7:51 AM EST Doles, As danwa Enrique RN * Because of a physical, mental, or emotional condition, do you have serious difficulty doing errandsalone such as visiting the doctor? Answer Date of Assessment Author No 05/10/2024 7:51 AM EST Doles, As dawna Enrique RN * Calculated C-SSRS Risk Score (Lifetime/Recent) Answer Date of Assessment Author No Risk Indicated 04/09/2025 2:40 PM Irasema Rey RN * [place] Suicide Severity Rating Scale (Screener/Recent Self-Report) Question [...] Date Author No 05/10/2024 7:51 AM EST Dolmaddison, As dawna Enrique RN documented in this encounter Progress Notes * Esme Anne MA - 03/18/2025 9:04 AM EST Spoke to patient and stated theres documents that dr madden stated there was improvement on ct scan, Called iris from pulmonary so she could call patient and explain situation with patient. * Odessa Watson - 03/17/2025 11:36 AM EST Patient called back today asking for clarification on this needle biopsy order. Was frustrated on not having answers on this order for a few weeks. I spoke with Radiology and they said the needle biopsy order was denied because the patient would need to follow-up in a year with a regular Ultrasoundand if those results came back abnormal, then a needle biopsy would be performed. Patient is aware of this information and said she would contact Dr. Madden on why she needed this needle biopsy. * Carmina Back - 03/17/2025 10:53 AM EST Patient called again today was waiting on a return call from Esme I did trans call - * Carmina Back - 03/15/2025 12:03 PM EST Patient needs a call re: needle biopsy if this we would be ordered Needs a contact call today Expecting a call from Esme RAMSEY / she did request manager business information Cheli unfortunately not in office today * Carmina Back - 03/14/2025 9:49 AM EST Patient just in office on 03-01-2025 neglected to mention status of biopsy - nodule that she understood this would be addressed by her provider Lexis CALLOWAY However I noted that she has now listed Dr. Oconnell - This was ordered by Dr. Madden Contact patient today with response. documented in this encounter Plan of Treatment Upcoming Encounters Date Type Department Care Team (Late st Contact Info) Description 04/19/2025 1:45 PM EST Office Visit Internal Medicine - [address] [place] [phone] Spring Oconnell MD [address] [place] [phone] 05/02/2025 1:30 PM EST Office Visit Orthopedic Surgery - [place] [address] [phone] Niraj Palacios DPDago [address] [phone] 09/21/2025 10:15 AM EDT Office Visit Pulmonology - [place] [address] [phone] Shelia Madden MD [address] [place] [phone] 09/23/2025 11:15 AM EDT Office Visit Internal Medicine - [place] [address] [phone] Spring Oconnell MD [address] [place] [phone] documented as of this encounter Visit Diagnoses [...] documented as of this encounter Care Teams Sand Hauler Relationship Specialty Start Date End Date Spring Oconnell MD [address] [phone] PCP - General Internal Medicine 03/11/25 documented as of this encounter
--- OUTSIDE RECORDS SUMMARY | 2025-04-18 21:42 | XMS_ITS | Encounter Summary ---
Author Organization [facility] Address [address] [place] [address] Care Team Providers Care Asset Protection Detective Name Role Phone Spring Oconnell MD Primary Care Provider [phone] Encounter Details Date Type Department Care Team (Late st Contact Info) Description 03/01/2025 Results Follow-Up Internal Medicine - [place] [address] [facility] [address] [place] [address] Lexis Navarro, BRODIE [address] [place] [address] Social History Tobacco Use Types Packs/Day Years Used Date Smoking Tobacco: Former Cigarettes 0.5 Q uit: 11/17/2022 Smokeless Tobacco: Never Alcohol Use Standard Drinks/Week Comments Not Currently 0 (1 standard drink = 0.6 oz pur e alcohol) Housing Instability Answer Date Recorde d Are you worried that in the next 2 months you may not have stable housing? Patient declined 05/10/2024 Food Access & Nutrition Answer Date Rec orded Do you have access to a vari ety of food including fruits and vegetables? Patient declined 05/10/2024 Health Literacy Answer Date Recorded How often do you need to hav e someone help you when you read instructions, pamphlets, or other written material from your doctor or pharmacy? Patient declined 05/10/2024 Caregiver: How often do you need to have someone help you when you read instructions, pamphlets, or other written material from your doctor or pharmacy? Not on file 025 Financial Risk Answer Date Recorded How hard is it for you to pa y for the very basics like food, housing, medical care, and air conditioning / heating? Patient declined 05/10/2024 Transportation Answer Date Recorded Has the lack of transportati on kept you from meetings, work, or from getting things needed for daily living? Patient declined 05/10/2024 Has the lack of transportati on kept you from medical appointments or from getting medications? Patient declined 05/10/2024 Social Isolation Answer Date Recorded How often do you feel lonely or isolated from those around you? Patient declined 05/10/2024 Food Risk Answer Date Recorded Within the past 12 months we worried whether our food would run out before we got money to buy more. Patient declined 025 Within the past 12 months th e food we bought just didn't last and we didn't have money to get more. Patient declined 10/2024 Dependent Care Answer Date Recorded Do you need help finding or paying for care for your loved ones. For example, summer child caregiver or elderly care for an older adult? Patient declined 05/10/2024 Education Answer Date Recorded Do you think completing more education or training, like finishing a GED, going to college, or learning a trade, would be helpful for you? Patient declined 05/10/2024 Employment and Income Answer Date Recor ded During the last four weeks, have you been actively looking for work? Patient declined 05/10/2024 Living Situation Answer Date Recorded What is your living situation? Unrecognized valu e 05/10/2024 Interpersonal Safety Answer Date Record ed Physical [...] of Assessment Author No 05/10/2024 7:51 AM Krissy Fritz, RN * Are you blind or do you have serious difficulty seeing, even when wearing glasses? Answer Date of Assessment Author No 05/10/2024 7:51 AM SHAR Dolmaddison, As dawna Enrique RN * Do you have serious difficulty walking or climbing stairs? Answer Date of Assessment Author No 05/10/2024 7:51 AM SHAR Dolmaddison, As dawna Enrique RN * Do you have serious difficulty dressing or bathing? Answer Date of Assessment Author No 05/10/2024 7:51 AM SHAR Dolmaddison, As dawna Enrique RN * Because of a physical, mental, or emotional condition, do you have serious difficulty doing errandsalone such as visiting the doctor? Answer Date of Assessment Author No 05/10/2024 7:51 AM SHAR Cantu, As dawna Enrique RN documented as of this encounter Mental Status * Because of a physical, mental, or emotional condition, do you have serious difficulty concentrating, remembering, or making decisions? (5 years old or older) Answer Entry Date Author No 05/10/2024 7:51 AM SHAR Cantu, Krissy Enrique RN documented in this encounter Plan of Treatment Upcoming Encounters Date Type Department Care Team (Late st Contact Info) Description 04/19/2025 1:45 PM EST Office Visit Internal Medicine - [address] [phone] Spring Oconnell MD [address] [place] [phone] 05/02/2025 1:30 PM EST Office Visit Orthopedic Surgery - [place] [address] [phone] Niraj Palacios DPM [address] [phone] 09/21/2025 10:15 AM EDT Office Visit Pulmonology - [place] 175 [facility] [address] [place] [phone] Shelia Mandujano MD [address] [place] [address] 09/23/2025 11:15 AM EDT Office Visit Internal Medicine - [place] 175 [facility] [address] [place] [address] Spring Oconnell MD [address] [place] [phone] documented as of this encounter Visit Diagnoses [...] documented as of this encounter Care Teams Asset Protection Detective Relationship Specialty Start Date End Date Spring Oconnell MD 175 [facility] [address] [place] [phone] PCP - General Internal Medicine 03/11/25 documented as of this encounter
== END 2025-04-18 15:30 | disposition home or self-care (01) ==
LOC: HO.HPHYS 15:08
PROVIDERS: PCP Physician Assistant; Visit Provider Physical Medicine & Rehabilitation
DX: M54.16 Radiculopathy, lumbar region (principal); M48.062 Spinal stenosis, lumbar region with neurogenic claudication; M53.3 Sacrococcygeal disorders, not elsewhere classified; M46.1 Sacroiliitis, not elsewhere classified; M21.372 Foot drop, left foot
CPT/HCPCS: 99214; G2211

== ENCOUNTER → 2025-04-18 15:08 | Outpatient (BNVA) | payer MEDICARE, MEDICAID, SELFPAY | PROVIDERS: PCP Physician Assistant; Visit Provider Physical Medicine & Rehabilitation | DX: M48.062 Spinal stenosis, lumbar region with neurogenic claudication (principal); M54.16 Radiculopathy, lumbar region; M53.3 Sacrococcygeal disorders, not elsewhere classified; M46.1 Sacroiliitis, not elsewhere classified; G89.29 Other chronic pain; M21.372 Foot drop, left foot | CPT/HCPCS: 99212 ==